=== PATIENT | female | born 1975 | race Caucasian/White ===

== ENCOUNTER 2018-04-08 08:53 | Outpatient (CLI) | payer OTHER ==
[2018-04-08 10:42] LABS: ALBUMIN 4.1 g/dL (3.2-5.5); ALBUMIN/GLOBULIN RATIO 1.3 (1.0-2.2); ALKALINE PHOSPHATASE 72 IU/L (42-121); ALT ALANINE AMINOTRANSFERASE 24 IU/L (10-60); AST ASPARTATE AMINOTRANSFERASE 19 IU/L (10-42); BILIRUBIN,TOTAL 0.6 mg/dL (0.2-1.0); BUN - BLOOD UREA NITROGEN 15 mg/dL (6-20); CARBON DIOXIDE - CO2 25 mmol/L (21-32); CHLORIDE 103 mmol/L (101-111); CHOL/HDL RATIO 5.4 (<4.4); CHOLESTEROL 280 mg/dL; CREATININE 0.6 mg/dL (0.4-1.0); GFR - MDRD 109 (>89); GLUCOSE 214 mg/dL (70-100); HDL CHOLESTEROL 52 mg/dL; LDL CHOLESTEROL,CALCULATED 188 mg/dL; LDL/HDL RATIO 3.6 (<4.4); SODIUM 140 mmol/L (135-145); TOTAL PROTEIN 7.2 g/dL (6.7-8.2); VLDL CHOLESTEROL 40 mg/dL
[2018-04-08 10:54] LABS: HB2 TOTAL 15.9 g/dL; HEMOGLOBIN A1C 1.3 g/dL; HEMOGLOBIN A1C % 9.6 % (4.6-6.2)
== END 2018-04-08 08:54 | disposition home or self-care (01) ==
LOC: LAB.F 08:53
PROVIDERS: ATTEND Internal Medicine
DX: E10.9 Type 1 diabetes mellitus without complications (principal); E78.5 Hyperlipidemia, unspecified
CPT/HCPCS: 36415; 80053; 80061; 82043; 83036; 83721; 84443

== ENCOUNTER 2018-06-08 09:17 | Outpatient (CLI) | payer OTHER ==
[2018-06-08 18:44] LABS: HB2 TOTAL 15.5 g/dL; HEMOGLOBIN A1C 1.06 g/dL; HEMOGLOBIN A1C % 8.4 % (4.6-6.2)
== END 2018-06-08 09:18 | disposition home or self-care (01) ==
LOC: LAB.F 09:17
PROVIDERS: ATTEND Internal Medicine
DX: E10.65 Type 1 diabetes mellitus with hyperglycemia (principal)
CPT/HCPCS: 36415; 83036

== ENCOUNTER 2018-09-02 07:27 | Outpatient (CLI) | payer OTHER ==
[2018-09-02 12:41] LABS: ALBUMIN 4.2 g/dL (3.2-5.5); ALBUMIN/GLOBULIN RATIO 1.3 (1.0-2.2); ALKALINE PHOSPHATASE 62 IU/L (42-121); ALT ALANINE AMINOTRANSFERASE 17 IU/L (10-60); AST ASPARTATE AMINOTRANSFERASE 19 IU/L (10-42); BILIRUBIN,TOTAL 0.5 mg/dL (0.2-1.0); BUN - BLOOD UREA NITROGEN 16 mg/dL (6-20); CALCIUM 9.2 mg/dL (8.5-10.3); CARBON DIOXIDE - CO2 24 mmol/L (21-32); CHLORIDE 107 mmol/L (101-111); CHOL/HDL RATIO 4.1 (<4.4); CHOLESTEROL 215 mg/dL; CREATININE 0.7 mg/dL (0.4-1.0); GFR - MDRD 91 (>89); GLUCOSE 81 mg/dL (70-100); HDL CHOLESTEROL 52 mg/dL; LDL CHOLESTEROL,CALCULATED 137 mg/dL; LDL/HDL RATIO 2.6 (<4.4); SODIUM 142 mmol/L (135-145); TOTAL PROTEIN 7.5 g/dL (6.7-8.2); VLDL CHOLESTEROL 26 mg/dL
[2018-09-02 17:38] LABS: CREATININE,URINE 136.3 mg/dL; MICROALBUM/CREATININE RATIO,UR 2.2 ug/mg (<30.0); MICROALBUMIN,URINE 0.3 mg/dL (0-300.0)
== END 2018-09-02 07:28 | disposition home or self-care (01) ==
LOC: LAB.F 07:27
PROVIDERS: ATTEND Internal Medicine
DX: E78.5 Hyperlipidemia, unspecified (principal); E10.65 Type 1 diabetes mellitus with hyperglycemia
CPT/HCPCS: 36415; 80053; 80061; 81599; 82043; 82570; 83036; 83721

== ENCOUNTER 2018-10-10 10:08 | Emergency (ER) | payer OTHER ==
[2018-10-10] MEDS ORDERED: SODIUM CHLORIDE 0.9% 1,000 ML IV ONE ×2 (10:16)
[2018-10-10 10:30] LABS: BILIRUBIN,URINE NEGATIVE (NEGATIVE); GLUCOSE, URINE (UA) >=1000 mg/dL (NEGATIVE); KETONES,URINE (UA) NEGATIVE (NEGATIVE); LEUKOCYTE ESTERASE, URINE NEGATIVE (NEGATIVE); NITRITE,URINE NEGATIVE (NEGATIVE); OCCULT BLOOD,URINE NEGATIVE (NEGATIVE); PROTEIN,URINE NEGATIVE (NEGATIVE); UROBILINOGEN,URINE 0.2 (NORMAL) E.U./dL (NORMAL)
[2018-10-10 10:31] LABS: CLARITY,URINE CLEAR (CLEAR); HCG UR QUAL NEGATIVE
[2018-10-10 10:52] LABS: BASOPHILS # (AUTO) 0.1 10^3/uL (0.0-0.1); BASOPHILS % (AUTO) 0.7 %; EOSINOPHILS # (AUTO) 0.2 10^3/uL (0.0-0.7); EOSINOPHILS % (AUTO) 2.7 %; HGB - HEMOGLOBIN 14.6 g/dL (12.0-16.0); LYMPHOCYTES # (AUTO) 1.9 10^3/uL (1.5-3.5); LYMPHOCYTES % (AUTO) 26.7 %; MEAN CORPUSCULAR HEMOGLOBIN 30.5 pg (27.0-31.0); MEAN CORPUSCULAR HGB CONC 33.9 g/dL (32.0-36.0); MEAN PLATELET VOLUME 10.1 fL (7.9-10.8); MONOCYTES # (AUTO) 0.5 10^3/uL (0.0-1.0); MONOCYTES % (AUTO) 6.6 %; NEUTROPHILS # (AUTO) 4.4 10^3/uL (1.5-6.6); PLT - PLATELET COUNT 213 10^3/uL (130-450); RED BLOOD COUNT 4.79 10^6/uL (4.20-5.40); RED CELL DISTRIBUTION WIDTH 13.7 % (12.0-15.0)
[2018-10-10 11:03] LABS: VBG BASE EXCESS -1.4 mmol/L (-2 - +2); VBG PCO2 37.7 mmHg (41-51); VBG PH 7.402 (7.31-7.41); VBG PO2 42.8 mmHg (25-47); VBG TOTAL CO2 24.1 mmol/L (24-29)
[2018-10-10 11:05] LABS: BUN - BLOOD UREA NITROGEN 14 mg/dL (6-20); CARBON DIOXIDE - CO2 22 mmol/L (21-32); CHLORIDE 106 mmol/L (101-111); SODIUM 140 mmol/L (135-145)
--- NOTE | 2018-10-10 11:05 | ED Physician Documentation ---
History of Present Illness - Stated complaint Stated Complaint: DIZZINESS/WEAKNESS - Chief complaint Chief Complaint: Abd Pain - History obtained from History obtained from: Patient, Family - History of Present Illness Timing: How many days ago (2-3) Pain level max: 4 Pain level now: 4 - Additonal information Additional information: 42-year-old diabetic female presents to the emergency department stating that her blood sugars have been poorly controlled for the past few days. She states she has had diarrhea for the past 3 weeks. Intermittent crampy abdominal pain. No recent antibiotics. No recent travel. She denies any changes to her medications. Nothing makes it better or worse. She states sometimes her blood sugar is high and sometimes it is low. Review of Systems Ten Systems: 10 systems reviewed and negative Constitutional: denies: Fever, Chills Nose: denies: Rhinorrhea / runny nose, Congestion Cardiac: denies: Chest pain / pressure Respiratory: denies: Cough GI: reports: Nausea. 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 HEENT: Rhinoplasty - Present Medications Home Medications: Ambulatory Orders Medication Instructions Recorded Confirmed Atorvastatin [Lipitor] 20 mg ORAL QPM 10/10/18 10/10/18 Empagliflozin [Jardiance] 25 mg PO DAILY 10/10/18 10/10/18 Insulin Aspart [NovoLOG] 5 unit SUBQ TIDWM 10/10/18 10/10/18 Insulin Glargine [Lantus Solostar] 20 unit SUBQ QPM 10/10/18 10/10/18 Insulin Glargine [Lantus Solostar] 20 unit SUBQ QPM #1 pen 10/10/18 Ondansetron Odt [Zofran] 4 mg TL Q6H PRN #10 tablet 10/10/18 metFORMIN [Glucophage] 500 mg PO BIDWM 10/10/18 10/10/18 - Allergies Allergies/Adverse Reactions: Allergies Allergy/AdvReac Type Severity Reaction Status Date / Time ciprofloxacin [From Cipro] Allergy Anaphylaxis Verified 10/10/18 10:16 shellfish derived Allergy Anaphylaxis Verified 10/10/18 10:16 - Social History Does the pt smoke?: No Smoking Status: Never smoker PD ED PE NORMAL - Vitals Vital signs reviewed: Yes - General General: Alert and oriented X 3, No acute distress, Well developed/nourished - HEENT HEENT: PERRL, Moist mucous membranes - Cardiac Cardiac: RRR, Strong equal pulses - Respiratory Respiratory: No respiratory distress, Clear bilaterally - Abdomen Abdomen: Soft, Non tender, Non distended - Back Back: No CVA TTP, No spinal TTP - Derm Derm: Warm and dry, No rash - Extremities Extremities: No calf tenderness / cord - Neuro Neuro: Alert and oriented X 3 - Psych Psych: Normal mood, Normal affect Results - Vitals Vitals: Vital Signs - 24 hr 10/10/18 10/10/18 10/10/18 10:11 12:22 13:32 Temperature 36.0 C L 36.6 C Heart Rate 60 56 L 64 Respiratory 18 16 18 Rate Blood Pressure 125/82 H 116/78 117/78 O2 Saturation 100 99 98 Oxygen O2 Source Room air - Labs Labs: Laboratory Tests 10/10/18 10/10/18 10/10/18 10:27 10:48 10:48 WBC 7.0 RBC 4.79 Hgb 14.6 Hct 43.1 MCV 90.0 MCH 30.5 MCHC 33.9 RDW 13.7 Plt Count 213 MPV 10.1 Neut # (Auto) 4.4 Lymph # (Auto) 1.9 [place] # (Auto) 0.5 Eos # (Auto) 0.2 Baso # (Auto) 0.1 Absolute Nucleated RBC 0.00 Nucleated RBC % 0.0 VBG pH VBG pCO2 VBG pO2 VBG HCO3 VBG Total CO2 VBG O2 Saturation VBG Base Excess Sodium 140 Potassium 3.7 Chloride 106 Carbon Dioxide 22 Anion Gap 12.0 BUN 14 Creatinine 0.7 Estimated GFR (MDRD) 91 Glucose 194 H Calcium 9.2 Total Bilirubin 0.5 AST 17 ALT 17 Alkaline Phosphatase 59 Total Protein 7.3 Albumin 4.2 Globulin 3.1 Albumin/Globulin Ratio 1.4 Lipase 28 Urine Color YELLOW Urine Clarity CLEAR Urine pH 6.0 Ur Specific [place] 1.010 Urine Protein NEGATIVE Urine Glucose (UA) >=1000 H Urine Ketones NEGATIVE Urine Occult Blood NEGATIVE Urine Nitrite NEGATIVE Urine Bilirubin NEGATIVE Urine Urobilinogen 0.2 (NORMAL) Ur Leukocyte Esterase NEGATIVE Ur Microscopic Review NOT INDICATED Urine Culture Comments NOT INDICATED Urine HCG, Qual NEGATIVE Serum Ketones NEGATIVE 10/10/18 10:48 WBC RBC Hgb Hct MCV MCH MCHC RDW Plt Count MPV Neut # (Auto) Lymph # (Auto) [place] # (Auto) Eos # (Auto) Baso # (Auto) Absolute Nucleated RBC Nucleated RBC % VBG pH 7.402 VBG pCO2 37.7 L VBG pO2 42.8 VBG HCO3 22.9 L VBG Total CO2 24.1 VBG O2 Saturation 80.2 H VBG Base Excess -1.4 Sodium Potassium Chloride Carbon Dioxide Anion Gap BUN Creatinine Estimated GFR (MDRD) Glucose Calcium Total Bilirubin AST ALT Alkaline Phosphatase Total Protein Albumin Globulin Albumin/Globulin Ratio Lipase Urine Color Urine Clarity Urine pH Ur Specific [place] Urine Protein Urine Glucose (UA) Urine Ketones Urine Occult Blood Urine Nitrite Urine Bilirubin Urine Urobilinogen Ur Leukocyte Esterase Ur Microscopic Review Urine Culture Comments Urine HCG, Qual Serum Ketones - Rads (name of study) CT abd/pelvis Radiology: Prelim report reviewed, EMP read contemporaneously, See rad report (No acute abnormality. Status post cholecystectomy and hysterectomy. Diverticulosis of the descending and sigmoid colon, no sign of diverticulitis. 4.5 cm fat-containing umbilical hernia. ) PD MEDICAL DECISION MAKING - ED course Complexity details: reviewed results, re-evaluated patient, considered differential, d/w patient ED course: No acute findings on CT scan. Her Lantus was by 3 years. We will refill this for her. Feels better after IV fluids. We will also prescribe Zofran for her. We will follow-up with her doctor for further care. No evidence of DKA or HHONKS. Patient counseled regarding signs and symptoms for which I believe and urgent re-evaluation would be necessary. Patient with good understanding of and agreement to plan and is comfortable going home at this time This document was made in part using voice recognition software. While efforts are made to proofread this document, sound alike and grammatical errors may occur. Departure - Departure Disposition: 01 Home, Self Care Clinical Impression: Viral syndrome, Dehydration Condition: Good Instructions: ED Dehydration, ED Viral Syndrome Follow-Up: Salomón Stewart MD [Primary Care Provider] - Within 3 Days Prescriptions: Insulin Glargine [Lantus Solostar] 20 unit SUBQ QPM #1 pen Ondansetron Odt [Zofran] 4 mg TL Q6H PRN #10 tablet PRN Reason: Nausea / Vomiting Comments: Return if you worsen. Follow-up with your doctor for further care. Drink plenty of water. Discharge Date/Time: 10/10/18 13:32
[2018-10-10 11:06] LABS: ALBUMIN 4.2 g/dL (3.2-5.5); ALBUMIN/GLOBULIN RATIO 1.4 (1.0-2.2); ALKALINE PHOSPHATASE 59 IU/L (42-121); ALT ALANINE AMINOTRANSFERASE 17 IU/L (10-60); AST ASPARTATE AMINOTRANSFERASE 17 IU/L (10-42); BILIRUBIN,TOTAL 0.5 mg/dL (0.2-1.0); CALCIUM 9.2 mg/dL (8.5-10.3); CREATININE 0.7 mg/dL (0.4-1.0); GFR - MDRD 91 (>89); GLUCOSE 194 mg/dL (70-100); KETONES, SERUM (ACETEST) NEGATIVE (NEGATIVE); LIPASE 28 U/L (22-51); TOTAL PROTEIN 7.3 g/dL (6.7-8.2)
[2018-10-10] MEDS ORDERED: ONDANSETRON 4 MG/2 ML VIAL IVP STA (11:06)
[2018-10-10] MEDS ORDERED: IOVERSOL 320 100 ML VIAL IVP ONE ×2 (11:11→12:00)
--- NOTE | 2018-10-10 12:28 | CT Report ---
Reason: abdominal pain, diarrhea Procedure Date: 10/10/2018 Accession Number: [id number] / [id number] Procedure: CT - Abdomen/Pelvis W CPT Code: FULL RESULT: EXAM: CT ABDOMEN AND PELVIS WITH IV CONTRAST EXAM DATE: 10/10/2018. CLINICAL HISTORY: Abdominal pain. Diarrhea. COMPARISONS: None. TECHNIQUE: Routine helical CT imaging was performed through the abdomen and pelvis. IV contrast: 90 cc of Optiray 320. Enteric contrast: None. Reconstructions: Coronal and sagittal. In accordance with CT protocol optimization, one or more of the following dose reduction techniques were utilized for this exam: automated exposure control, adjustment of mA and/or KV based on patient size, or use of iterative reconstructive technique. FINDINGS: Lung Bases: The lungs are clear. No pleural or pericardial effusion. Liver: Normal. No masses. Gallbladder/Bile Ducts: Cholecystectomy. No bile duct dilatation. Spleen: Normal. Pancreas: Normal. Adrenal Glands: 10 mm left adrenal nodule, 80 HU postcontrast. Right adrenal appears normal. Kidneys: Normal. No masses, calculi, or hydronephrosis. Peritoneal Cavity/Bowel: No bowel dilatation. Diverticulosis of the descending and sigmoid colon. No free fluid, free air or adenopathy. No masses or acute inflammatory process. 4.5 cm fat-containing umbilical hernia. Pelvic Organs: The urinary bladder appears normal. The uterus has been removed. No mass, adenopathy, or fluid collection. Surgical clips in the left pelvis. Vasculature: Normal. Bones: Normal. IMPRESSION: No acute abnormality. Status post cholecystectomy and hysterectomy. Diverticulosis of the descending and sigmoid colon, no sign of diverticulitis. 4.5 cm fat-containing umbilical hernia. RADIA
[2018-10-10 13:32] VITALS: BP 117/78
== END 2018-10-10 13:32 | disposition home or self-care (01) ==
LOC: ED 10:08
DX: B34.9 Viral infection, unspecified (principal); E86.0 Dehydration; E11.9 Type 2 diabetes mellitus without complications; Z79.4 Long term (current) use of insulin
CPT/HCPCS: 36415; 74177; 80053; 81003; 81025; 82009; 82803; 83690; 85025; 96361; 96374; 99284; Q9967; 81001; 87086

== ENCOUNTER 2019-01-19 08:44 | Outpatient (CLI) | payer OTHER ==
[2019-01-19 18:26] LABS: ALBUMIN 4.3 g/dL (3.2-5.5); ALBUMIN/GLOBULIN RATIO 1.3 (1.0-2.2); ALKALINE PHOSPHATASE 81 IU/L (42-121); ALT ALANINE AMINOTRANSFERASE 21 IU/L (10-60); AST ASPARTATE AMINOTRANSFERASE 18 IU/L (10-42); BILIRUBIN,TOTAL 0.9 mg/dL (0.2-1.0); BUN - BLOOD UREA NITROGEN 12 mg/dL (6-20); CHOLESTEROL 167 mg/dL; CREATININE 0.6 mg/dL (0.4-1.0); GFR - MDRD 108 (>89); HDL CHOLESTEROL 42 mg/dL; LDL CHOLESTEROL,CALCULATED 95 mg/dL; LDL/HDL RATIO 2.3 (<4.4); TOTAL PROTEIN 7.6 g/dL (6.7-8.2); VLDL CHOLESTEROL 30 mg/dL
[2019-01-19 18:34] LABS: CALCIUM 9.5 mg/dL (8.5-10.3); CARBON DIOXIDE - CO2 29 mmol/L (21-32); CHLORIDE 102 mmol/L (101-111); GLUCOSE 312 mg/dL (70-100); SODIUM 139 mmol/L (135-145)
[2019-01-19 19:05] LABS: HB2 TOTAL 16.4 g/dL; HEMOGLOBIN A1C 1.41 g/dL
== END 2019-01-19 08:45 | disposition home or self-care (01) ==
LOC: LAB.S 08:44
PROVIDERS: ATTEND Internal Medicine
DX: E78.5 Hyperlipidemia, unspecified (principal); E11.9 Type 2 diabetes mellitus without complications; Z79.4 Long term (current) use of insulin
CPT/HCPCS: 36415; 80053; 80061; 83036; 83721

== ENCOUNTER 2019-01-31 09:58 | Outpatient (CLI) | payer OTHER ==
[2019-01-31 20:30] LABS: CANDIDA GROUP DNA NEGATIVE (NEGATIVE); CANDIDA KRUSEI DNA NEGATIVE (NEGATIVE); TRICHOMONAS VAGINALIS DNA NEGATIVE (NEGATIVE)
== END 2019-01-31 23:59 | disposition home or self-care (01) ==
LOC: LAB.R 09:58
PROVIDERS: ATTEND Obstetrics & Gynecology
DX: L29.8 Other pruritus (principal)
CPT/HCPCS: 87661; 87801

== ENCOUNTER 2019-03-31 08:51 | Outpatient (CLI) | payer OTHER ==
--- NOTE | 2019-04-19 08:50 | Mammography Report ---
Reason: ROUTINE MAMMO Procedure Date: 03/31/2019 Accession Number: [id number] / [id number] Procedure: MGS - Screening Mammo Dig Bilat CPT Code: Final Report FULL RESULT: EXAM: Screening Mammo Dig Bilat DATE: 03/31/2019 9:24 AM CLINICAL HISTORY: Screening encounter. History of early menses. TECHNIQUE: (B) - Bilateral CC, laterally exaggerated CC, MLO views were obtained. COMPARISON: 08/09/2014. PARENCHYMAL PATTERN: (A) - The breast(s) demonstrate(s) scattered fibroglandular densities. FINDINGS: There are no suspicious masses, calcifications, or areas of distortion. IMPRESSION: Negative examination. BI-RADS category 1. RECOMMENDATION: (ANNUAL) - Recommend routine annual screening mammography. BI-RADS CATEGORY: (1) - Negative. STANDARD QUALIFYING STATEMENTS: 1. This examination was reviewed with the aid of Computer-Aided Detection (CAD). 2. A negative or benign imaging report should not preclude biopsy if clinically suspicious findings are present. 3. Dense breasts may obscure an underlying neoplasm. 4. This examination was reviewed without the aid of 3D breast imaging (tomosynthesis).
== END 2019-03-31 08:52 | disposition home or self-care (01) ==
LOC: DI.S 08:51
PROVIDERS: ATTEND Obstetrics & Gynecology
DX: Z12.31 Encounter for screening mammogram for malignant neoplasm of breast (principal)
CPT/HCPCS: 77067

== ENCOUNTER 2019-05-31 10:24 | Observation (INO) | payer OTHER ==
[2019-05-31 11:06] LABS: BILIRUBIN,URINE NEGATIVE (NEGATIVE); GLUCOSE, URINE (UA) >=1000 mg/dL (NEGATIVE); KETONES,URINE (UA) NEGATIVE (NEGATIVE); LEUKOCYTE ESTERASE, URINE NEGATIVE (NEGATIVE); NITRITE,URINE NEGATIVE (NEGATIVE); OCCULT BLOOD,URINE NEGATIVE (NEGATIVE); PH,URINE 6.5 PH (5.0-7.5); PROTEIN,URINE NEGATIVE (NEGATIVE); UROBILINOGEN,URINE 0.2 (NORMAL) E.U./dL (NORMAL)
[2019-05-31 11:07] LABS: BASOPHILS # (AUTO) 0.1 10^3/uL (0.0-0.1); BASOPHILS % (AUTO) 0.9 %; EOSINOPHILS # (AUTO) 0.2 10^3/uL (0.0-0.7); EOSINOPHILS % (AUTO) 2.5 %; HGB - HEMOGLOBIN 15.1 g/dL (12.0-16.0); LYMPHOCYTES # (AUTO) 1.9 10^3/uL (1.5-3.5); LYMPHOCYTES % (AUTO) 27.5 %; MEAN CORPUSCULAR HEMOGLOBIN 30.3 pg (27.0-31.0); MEAN CORPUSCULAR HGB CONC 33.6 g/dL (32.0-36.0); MEAN CORPUSCULAR VOLUME 90.4 fL (81.0-99.0); MEAN PLATELET VOLUME 9.7 fL (7.9-10.8); MONOCYTES # (AUTO) 0.4 10^3/uL (0.0-1.0); MONOCYTES % (AUTO) 5.6 %; NEUTROPHILS # (AUTO) 4.3 10^3/uL (1.5-6.6); NEUTROPHILS % (AUTO) 63.1 %; PLT - PLATELET COUNT 264 10^3/uL (130-450); RED BLOOD COUNT 4.98 10^6/uL (4.20-5.40); RED CELL DISTRIBUTION WIDTH 13.5 % (12.0-15.0); WHITE BLOOD COUNT 6.8 x10^3/uL (4.8-10.8)
[2019-05-31 11:09] LABS: CLARITY,URINE CLEAR (CLEAR)
[2019-05-31 11:19] LABS: ALBUMIN 4.5 g/dL (3.2-5.5); ALBUMIN/GLOBULIN RATIO 1.6 (1.0-2.2); BILIRUBIN,TOTAL 0.4 mg/dL (0.2-1.0); CREATININE 0.6 mg/dL (0.4-1.0); TOTAL PROTEIN 7.3 g/dL (6.7-8.2)
--- NOTE | 2019-05-31 13:08 | ED Physician Documentation ---
PD HPI ABD PAIN - Stated complaint Stated Complaint: ABD PAIN - Chief complaint Chief Complaint: Abd Pain - History obtained from History obtained from: Patient - History of Present Illness Timing - onset: How many hours ago (7), Today (at 3 am) Timing - duration: Hours Timing - details: Abrupt onset, Still present Quality: Cramping, Sharp, Pain Location: LLQ Radiation: Left flank Improved by: No: Eating, Laying still, Position Worsened by: Moving, Palpation. No: Eating, Breathing Associated symptoms: Nausea. No: Fever, Vomiting, Diarrhea, Constipation, Dysuria, Near syncope / syncope Similar symptoms before: Has not had sx before Recently seen: Clinic (Seen by her primary care in the clinic and referred to the ER due to the degree of pain and concern for an acute process and timely need for work-up.) Review of Systems Constitutional: denies: Fever, Chills Nose: denies: Rhinorrhea / runny nose, Congestion Throat: denies: Sore throat Cardiac: denies: Chest pain / pressure Respiratory: denies: Dyspnea, Cough GI: reports: Abdominal Pain, Nausea. 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: Hysterectomy, Oophrectomy HEENT: Rhinoplasty - Present Medications Home Medications: Ambulatory Orders Medication Instructions Recorded Confirmed Atorvastatin [Lipitor] 20 mg ORAL QPM 10/10/18 10/10/18 Empagliflozin [Jardiance] 25 mg PO DAILY 10/10/18 10/10/18 Insulin Aspart [NovoLOG] 5 unit SUBQ TIDWM 10/10/18 10/10/18 Insulin Glargine [Lantus Solostar] 20 unit SUBQ QPM 10/10/18 10/10/18 Insulin Glargine [Lantus Solostar] 20 unit SUBQ QPM #1 pen 10/10/18 Ondansetron Odt [Zofran] 4 mg TL Q6H PRN #10 tablet 10/10/18 metFORMIN [Glucophage] 500 mg PO BIDWM 10/10/18 10/10/18 - Allergies Allergies/Adverse Reactions: Allergies Allergy/AdvReac Type Severity Reaction Status Date / Time ciprofloxacin [From Cipro] Allergy Anaphylaxis Verified 05/31/19 10:37 shellfish derived Allergy Anaphylaxis Verified 05/31/19 10:37 - Social History Does the pt smoke?: No Smoking Status: Never smoker PD ED PE NORMAL - Vitals Vital signs reviewed: Yes - General General: Alert and oriented X 3, Well developed/nourished, Other (She appears in considerable pain and is holding still to reduce movement.) - HEENT HEENT: Pharynx benign - Neck Neck: Supple, no meningeal sign, No adenopathy - Cardiac Cardiac: RRR, No murmur - Respiratory Respiratory: Clear bilaterally - Abdomen Abdomen: Non distended, No organomegaly, Other (The abdomen shows a little bit of fullness in the supraumbilical area without any tenderness in that spot. There is softness in the subcutaneous soft tissue. There is no umbilical area hernia per se. There is considerable tenderness in the left lower quadrant area with percussion and rebound tenderness. There is some mild left CVA tenderness. The right abdomen is not tender.). No: Normal bowel sounds (diminished) - Female Female : Deferred - Rectal Rectal: Deferred - Derm Derm: Normal color, Warm and dry, No rash - Extremities Extremities: No edema, No calf tenderness / cord - Neuro Neuro: Alert and oriented X 3, No motor deficit, Normal speech Results - Vitals Vitals: Vital Signs - 24 hr 05/31/19 05/31/19 05/31/19 10:37 13:12 15:41 Temperature 36.7 C 36.6 C 36.6 C Heart Rate 70 63 66 Respiratory 20 16 16 Rate Blood Pressure 110/76 103/72 98/65 O2 Saturation 98 100 100 Oxygen O2 Source Room air - Labs Labs: Laboratory Tests 05/31/19 05/31/19 05/31/19 11:00 11:04 11:04 WBC 6.8 RBC 4.98 Hgb 15.1 Hct 45.0 MCV 90.4 MCH 30.3 MCHC 33.6 RDW 13.5 Plt Count 264 MPV 9.7 Neut # (Auto) 4.3 Lymph # (Auto) 1.9 [place] # (Auto) 0.4 Eos # (Auto) 0.2 Baso # (Auto) 0.1 Absolute Nucleated RBC 0.00 Nucleated RBC % 0.0 Sodium 140 Potassium 3.8 Chloride 103 Carbon Dioxide 26 Anion Gap 11.0 BUN 12 Creatinine 0.6 Estimated GFR (MDRD) 108 Glucose 255 H Glycated Hemoglobin Estim Average Glucose Calcium 9.0 Total Bilirubin 0.4 AST 19 ALT 26 Alkaline Phosphatase 64 Total Protein 7.3 Albumin 4.5 Globulin 2.8 Albumin/Globulin Ratio 1.6 Lipase 28 Urine Color YELLOW Urine Clarity CLEAR Urine pH 6.5 Ur Specific [place] 1.010 Urine Protein NEGATIVE Urine Glucose (UA) >=1000 H Urine Ketones NEGATIVE Urine Occult Blood NEGATIVE Urine Nitrite NEGATIVE Urine Bilirubin NEGATIVE Urine Urobilinogen 0.2 (NORMAL) Ur Leukocyte Esterase NEGATIVE Ur Microscopic Review NOT INDICATED Urine Culture Comments NOT INDICATED Serum Ketones 05/31/19 05/31/19 11:04 11:04 WBC RBC Hgb Hct MCV MCH MCHC RDW Plt Count MPV Neut # (Auto) Lymph # (Auto) [place] # (Auto) Eos # (Auto) Baso # (Auto) Absolute Nucleated RBC Nucleated RBC % Sodium Potassium Chloride Carbon Dioxide Anion Gap BUN Creatinine Estimated GFR (MDRD) Glucose Glycated Hemoglobin 10.2 H Estim Average Glucose 246 H Calcium Total Bilirubin AST ALT Alkaline Phosphatase Total Protein Albumin Globulin Albumin/Globulin Ratio Lipase Urine Color Urine Clarity Urine pH Ur Specific [place] Urine Protein Urine Glucose (UA) Urine Ketones Urine Occult Blood Urine Nitrite Urine Bilirubin Urine Urobilinogen Ur Leukocyte Esterase Ur Microscopic Review Urine Culture Comments Serum Ketones NEGATIVE - Rads (name of study) Abdominal pelvic CT Radiology: Prelim report reviewed (Diverticuli without diverticulitis. 4 cm fat-containing hernia in the supraumbilical area without any inflammation or signs of obstruction no kidney stones nor hydronephrosis. No acute explanation for the pain), See rad report PD MEDICAL DECISION MAKING - ED course Complexity details: re-evaluated patient (Her CT scan did not show any obvious cause for the pain. There is a supra umbilical hernia of fat without any inflammation. Palpation in that area is not tender. That does not seem to be the cause of the pain clinically. She is still very tender in the left lower abdomen still with some rebound and percussion. I do not have a obvious explanation for it but her continued pain is still concerning. I will talk with the hospitalist regarding further assessment.), considered differential (Clinically seems concerning for diverticulitis. Also consider kidney infection or kidney stone. She has had previous hysterectomy and oophorectomy as well as appendectomy and cholecystectomy so I know those are not the problem. She is in quite a bit of pain and has tenderness with peritoneal signs of percussion and rebound. We will get labs and CT scan to better evaluate.), d/w patient Departure - Departure Disposition: ED Place in Observation Clinical Impression: Left lower quadrant abdominal pain Condition: Stable Record reviewed to determine appropriate education?: Yes Discharge Date/Time: 05/31/19 17:05
[2019-05-31] MEDS ORDERED: KETOROLAC 30 MG/ML VIAL IVP STA (13:51)
[2019-05-31] MEDS ORDERED: HYDROmorphone 1 MG/ML SYRINGE IVP STA ×2 (13:51→15:36)
[2019-05-31] MEDS ORDERED: ONDANSETRON 4 MG/2 ML VIAL IVP STA ×2 (13:51→15:48)
[2019-05-31] MEDS ORDERED: SODIUM CHLORIDE 0.9% 1,000 ML IV ONE ×2 (13:51→15:44)
[2019-05-31] MEDS ORDERED: IOVERSOL 320 100 ML VIAL IVP ONE ×2 (13:55→20:27)
--- NOTE | 2019-05-31 14:49 | CT Report ---
Reason: left lower abd pain today Procedure Date: 05/31/2019 Accession Number: [id number] / [id number] Procedure: CT - Abdomen/Pelvis W CPT Code: Final Report FULL RESULT: EXAM: CT ABDOMEN AND PELVIS EXAM DATE: 05/31/2019 02:26 PM. CLINICAL HISTORY: Left lower abd pain today. COMPARISONS: ABDOMEN/PELVIS W/ 10/10/2018 11:49 AM. TECHNIQUE: Routine helical CT imaging was performed through the abdomen and pelvis. IV contrast: OPTIRAY 320. Enteric contrast: No. Reconstructions: Coronal and sagittal. In accordance with CT protocol optimization, one or more of the following dose reduction techniques were utilized for this exam: automated exposure control, adjustment of mA and/or KV based on patient size, or use of iterative reconstructive technique. FINDINGS: Lung Bases: Unremarkable. Liver: Fatty infiltrated. Gallbladder/Bile Ducts: Post cholecystectomy Spleen: Normal. Pancreas: Normal. Adrenal Glands: Stable left adrenal nodule Kidneys: Normal. No masses or hydronephrosis. Peritoneal Cavity/Bowel: diverticulosis. 4.7 cm fat-containing supraumbilical hernia, neck measures 2.8 cm. No free fluid, free air or adenopathy. No masses or acute inflammatory process. The appendix is not identified but no pericecal inflammatory changes. Pelvic Organs: Post hysterectomy The bladder and visualized pelvic organs are within normal limits. Vasculature: No aneurysms or other significant abnormality. Bones: No significant abnormality. Other: None. IMPRESSION: 1. Diverticulosis. 2. 4.7 cm fat-containing supra umbilical hernia. 3. Appendix not identified but no pericecal inflammatory changes. RADIA
[2019-05-31] MEDS ORDERED: PROCHLORPERAZINE 10 MG/2 ML VIAL IVP PRN (15:53)
[2019-05-31] MEDS ORDERED: ONDANSETRON 4 MG/2 ML VIAL IVP PRN (15:53)
[2019-05-31] MEDS ORDERED: SODIUM CHLORIDE FLUSH 0.9% 10 ML SYRINGE IVP PRN (15:53)
[2019-05-31] MEDS ORDERED: MORPHINE 2 MG/ML CARPUJECT IVP PRN (15:53)
[2019-05-31] MEDS ORDERED: ZOLPIDEM 5 MG TABLET PO PRN ×2 (15:53→17:29)
[2019-05-31] MEDS ORDERED: oxyCODONE 5 MG TABLET PO PRN (15:53)
[2019-05-31 16:39] LABS: HB2 TOTAL 15.4 g/dL; HEMOGLOBIN A1C 1.36 g/dL; HEMOGLOBIN A1C % 10.2 % (4.6-6.2)
[2019-05-31] MEDS ORDERED: LORazepam 2 MG/ML VIAL IVP PRN (17:29)
[2019-05-31] MEDS: INSULIN ASPART 300 UNIT/3 ML PEN SUBQ SCH ×2 (17:37→23:07)
--- NOTE | 2019-05-31 17:38 | HISTORY & PHYSICAL EXAMINATION ---
Chief Complaint - Chief Complaint Chief Complaint: abdominal pain History of Present Illness - History of Present Illness HPI Comment/Other: Ms. Owens is a 43 yrs-old female with a PMH significant for DM2 on insulin for 10 yrs, hyperlipidemia, endometriosis with s/p of hysterectomy, cholecystectomy, appendectomy, who present ER complain abdominal pain. pt report she had lower abdominal pain started about 3am. pt is described as constant radiating around left side to the left back. pt report she had nausea with vomiting. she denies fevers, chill, shortness of breath, cough, chest pain, diarrhea. she also reports that she feels like she can't empty bladder. pt report she saw PCP today morning and advised her to come to ER for a more detailed evaluation. CT of abdomen reveals diverticulosis, 4.7 cm fat-containing supra umbilical hernia otherwise unremarkable. Lab test reveals A1C 10.2 and hyperglycemia at 255, serum ketones is negative. In ER, pt is afebrile, and hemodynamic stable. pt is admitted in observation unit for evaluation of intractable abdominal pain,and nausea and vomiting. pt request full code status History - Past Medical History Cardiovascular: reports: High cholesterol Endocrine/Autoimmune: reports: Type 2 diabetes PUBLIC FINANCE SPECIALIST: reports: Endometriosis - Past Surgical History General: reports: Cholecystectomy /PUBLIC FINANCE SPECIALIST: reports: Hysterectomy HEENT: reports: Rhinoplasty - Family & Social History Family History: Mother: Alive and Well, Mental Illness, Father: Alive and Well, CAD Family History Comment/Other: pt report both her parents are living. her father had hx of HTN, her mother has serious mental health issue. her siblings are all healthy. she has three children, all are health. Social History Notes: she denies hx of smoking, alcohol and drug issues. Meds/Allgy - Home Medications Home Medications: Ambulatory Orders Medication Instructions Recorded Confirmed Atorvastatin [Lipitor] 20 mg ORAL QPM 10/10/18 10/10/18 Empagliflozin [Jardiance] 25 mg PO DAILY 10/10/18 10/10/18 Insulin Aspart [NovoLOG] 5 unit SUBQ TIDWM 10/10/18 10/10/18 Insulin Glargine [Lantus Solostar] 20 unit SUBQ QPM 10/10/18 10/10/18 Insulin Glargine [Lantus Solostar] 20 unit SUBQ QPM #1 pen 10/10/18 Ondansetron Odt [Zofran] 4 mg TL Q6H PRN #10 tablet 10/10/18 metFORMIN [Glucophage] 500 mg PO BIDWM 10/10/18 10/10/18 - Allergies Allergies/Adverse Reactions: Allergies Allergy/AdvReac Type Severity Reaction Status Date / Time ciprofloxacin [From Cipro] Allergy Anaphylaxis Verified 05/31/19 10:37 shellfish derived Allergy Anaphylaxis Verified 05/31/19 10:37 Review of Systems - Constitutional Constitutional: denies: Fatigue, Fever, Chills, Malaise, Weakness, Poor appetite, Diaphoresis, Night sweats - Eyes Eyes: denies: Pain, Irritation, Amaurosis, Blurred vision, Spots in vision, Field loss, Vision loss, Dipolpia - Ears, Nose & Throat Ears, Nose & Throat: denies: Ear pain, Hearing loss, Hearing aids, Tinnitus, Vertigo, Nasal pain, Nasal discharge, Nosebleeds, Nasal obstruction, Postnasal drainage, Dentures, Sore throat, Mouth lesions, Bleeding gums - Cardiovascular Cariovascular: denies: Irregular heart rate, Palpitations, Chest pain, Edema, Lightheadedness, Syncope, Exertional dyspnea, Decr. exercise tolerance - Respiratory Respiratory: denies: Cough, Sputum production, Wheezing, Snoring, Hemoptysis, Orthopnea, SOB at rest, SOB with exertion, Apnea - Gastrointestinal Gastrointestinal: reports: Abdominal pain, Nausea, Vomiting. denies: Abdominal distention, Constipation, Diarrhea, Change in bowel habits, Rectal bleeding, Black stools, Bloody stools, Bile emesis, Davon blood emesis, Coffee grounds emesis, Reflux/heartburn - Genitourinary Genitourinary: denies: Dysuria, Frequency, Urgency, Incontinence, Flank pain, Nocturia, Urethral discharge - Musculoskeletal Musculoskeletal: denies: Muscle pain, Back pain, Muscle aches, Stiffness, L imited range of motion, Muscle weakness, Gout, Joint pain - Integumentary Integumentary: denies: Rash, Pruritis, Lesions, Dryness, Lumps, Acne, Pigment changes, Nail changes - Neurological Neurological: denies: General weakness, Focal weakness, Headache, Dizziness, Numbness, Memory problems, Pre-existing deficit, Abnormal gait - Psychiatric Psychiatric: denies: Depression, Anxiety, Suicidal, Delusions, Hallucinations, Homicidal - Endocrine Endocrine: denies: Polyuria, Polydypsia, Polyphagia, Intolerance to cold - Hematologic/Lymphatic Hematologic/Lymphatic: denies: Anemia, Bruising, Petechiae, Blood clots, Lymphadenopathy, Bleeding tendencies Exam - Vital Signs Vital Signs: Vital Signs x48h Temp Pulse Pulse Resp BP BP Pulse Ox 05/31/19 17:00 36.2 C L 66 18 121/79 98 05/31/19 15:41 36.6 C 66 16 98/65 100 05/31/19 13:12 36.6 C 63 16 103/72 100 05/31/19 10:37 36.7 C 70 20 110/76 98 - Physical Exam General Appearance: positive: Alert, Mild distress. negative: Lethargic Eyes Bilateral: positive: Normal inspection, PERRL, EOMI, No lid inflammation ENT: positive: ENT inspection nml, Pharynx nml, No signs of dehydration. negative: Purulent nasal drainage Neck: positive: Nml inspection, Thyroid nml, No JVD, Trachea midline. negative: Thyromegaly, Lymphadenopathy (R), Lymphadenopathy (L), Stiff neck, Tracheal deviation Respiratory: positive: Chest non-tender, No respiratory distress, Breath sounds nml. negative: Wheezes, Rales, Rhonchi Cardiovascular: positive: Regular rate & rhythm, No murmur, No gallop. negative: Irregularly irregular, Extrasystoles, Tachycardia, Bradycardia, JVD present, Systolic murmur, Diastolic murmur Peripheral Pulses: positive: 2+ Abdomen: positive: Non-tender, No organomegaly, Nml bowel sounds, No distention. negative: Tenderness, Guarding Back: positive: Nml inspection. negative: CVA tenderness (R), CVA tenderness (L) Skin: positive: Color nml, No rash, Warm, Dry. negative: Cyanosis, Diaphoresis, Pallor Extremities: positive: Non-tender, Full ROM, Nml appearance. negative: Calf tenderness, Kimberly's sign/cords Neurologic/Psychiatric: positive: Oriented x3, Motor nml, Sensation nml, Mood/a ffect nml. negative: Weakness, Sensory loss, Facial droop, Slurred/abnml speech, Depressed mood/affect Sepsis Event Note (H) - Evaluation Current Stage of Sepsis: Ruled out Conclusion/Plan - Problem List (1) Left lower quadrant abdominal pain Conclusion/Plan: CT of abdomen/pelvis reveals unremarkable. pt has hx of multiple abdominal surgery, unknown etiology to cause her abdominal pain. differential diagnosis including virus gastroenteritis, diabetes gastroparesis, muscle spasm. plan: bowel rest with clear diet, IVF of NS, pain control, anti-emesis PRN, ambien for pt's sleep and rest. (2) Nausea & vomiting Conclusion/Plan: unknown etiology, differential diagnosis including virus gastroenteritis, diabetes gastroparesis plan: IVF of NS, anti-emesis PRN, bowel rest (3) Dehydration Conclusion/Plan: pt clinically present dehydration and pt has hyperglycemia. plan: IVF of NS, lab monitor, check serum ketones (4) Uncontrolled diabetes mellitus Conclusion/Plan: pt has A1C is 10.2, uncontrolled DM2. plan: resume home insulin, start SS, ACHS, and hypoglycemia protocol, and hold home Metformin (5) Hyperlipidemia Conclusion/Plan: stable, will resume home statin - Lab Results Fish Bones: 06/01/19 05:00 06/01/19 05:00 Core Measures - Anticipated LOS I expect patient to be DC'd or transferred within 96 hours.: Yes - DVT/VTE - Prophylaxis VTE/DVT Device ordered at admit?: Yes VTE/DVT Prophylaxis med ordered at admit?: Yes
[2019-05-31] MEDS: PANTOPRAZOLE 40 MG VIAL IVP SCH (17:50)
[2019-05-31] MEDS: ACETAMINOPHEN 325 MG TABLET PO PRN ×2 (17:57→21:55)
[2019-05-31] MEDS: SODIUM CHLORIDE 0.9% 1,000 ML IV SCH (17:57)
[2019-05-31] MEDS: SODIUM CHLORIDE FLUSH 0.9% 10 ML SYRINGE IVP SCH (18:03)
[2019-05-31] MEDS ORDERED: METOCLOPRAMIDE 10 MG/2 ML VIAL IVP PRN (18:46)
[2019-05-31] MEDS ORDERED: INSULIN GLARGINE 300 UNIT/3 ML PEN SUBQ SCH (21:00)
[2019-06-01] MEDS: SODIUM CHLORIDE FLUSH 0.9% 10 ML SYRINGE IVP SCH ×2 (01:11→08:14)
[2019-06-01] MEDS: ACETAMINOPHEN 325 MG TABLET PO PRN ×3 (03:41→11:55)
[2019-06-01] MEDS: SODIUM CHLORIDE 0.9% 1,000 ML IV SCH (03:45)
[2019-06-01 05:24] LABS: BASOPHILS # (AUTO) 0.1 10^3/uL (0.0-0.1); BASOPHILS % (AUTO) 0.8 %; EOSINOPHILS # (AUTO) 0.1 10^3/uL (0.0-0.7); EOSINOPHILS % (AUTO) 2.1 %; HGB - HEMOGLOBIN 11.8 g/dL (12.0-16.0); LYMPHOCYTES # (AUTO) 2.1 10^3/uL (1.5-3.5); LYMPHOCYTES % (AUTO) 35.2 %; MEAN CORPUSCULAR HGB CONC 32.2 g/dL (32.0-36.0); MEAN CORPUSCULAR VOLUME 89.9 fL (81.0-99.0); MEAN PLATELET VOLUME 9.8 fL (7.9-10.8); MONOCYTES # (AUTO) 0.4 10^3/uL (0.0-1.0); MONOCYTES % (AUTO) 6.8 %; NEUTROPHILS # (AUTO) 3.3 10^3/uL (1.5-6.6); NEUTROPHILS % (AUTO) 54.8 %; PLT - PLATELET COUNT 198 10^3/uL (130-450); RED BLOOD COUNT 4.07 10^6/uL (4.20-5.40); RED CELL DISTRIBUTION WIDTH 13.6 % (12.0-15.0); WHITE BLOOD COUNT 6.1 x10^3/uL (4.8-10.8)
[2019-06-01 05:31] LABS: CALCIUM 7.5 mg/dL (8.5-10.3); CREATININE 0.6 mg/dL (0.4-1.0)
[2019-06-01] MEDS: PANTOPRAZOLE 40 MG VIAL IVP SCH (06:47)
[2019-06-01] MEDS: INSULIN ASPART 300 UNIT/3 ML PEN SUBQ SCH ×2 (08:00→11:48)
[2019-06-01] MEDS ORDERED: POTASSIUM CHLORIDE 20 MEQ TABLET PO ONE (08:03)
[2019-06-01] MEDS ORDERED: CALCIUM CITRATE 250 MG TABLET PO SCH (09:00)
[2019-06-01] MEDS ORDERED: ENOXAPARIN 40 MG/0.4 ML SYRINGE SUBQ SCH (09:00)
--- NOTE | 2019-06-01 11:15 | PHARMACY PROGRESS NOTE ---
- Best Possible Medication History Admit Date and Time: 05/31/19 1553 Processed by: Pharmacy Medication History completed: Yes Patient Interview: Completed Secondary Source(s): Physician records As the person ultimately responsible for medication therapy, providers are able to order a medication from an existing home medication list in [facility] via the "Reconcile Routine" prior to Confirmation of that medication by is support analyst. Such practice is discouraged except when the physician, in their clinical judgment, deems that a medical need exists for a medication without regard to previous use.
[2019-06-01 11:53] VITALS: BP 109/77
--- NOTE | 2019-06-01 12:45 | Discharge Plan ---
Discharge Plan Problem Reviewed?: Yes Disposition: Home, Self Care Condition: Stable Diet: Diabetic Activity Restrictions: Activity as Tolerated Shower Restrictions: No (fall precaution) Instruction Topics: Abdominal Pain, Diabetes Heart Disease, Diabetes Type 2 Coping Health Concerns: abdominal pain, uncontrolled diabetes Plan of Treatment: your abdominal pain is good controlled and resolved. you tolerate the diet. you likely has virus gastroenteritis. Keep your good hydration, eat health diet. your A1C is 10.2 and is high, advise you control of your glucose intake, and keep medical compliance. Care Goals: stabilization and improvement of your medical conditions Assessment: discussed with you the care plan, and you understood. Additional Instructions or Follow Up instructions: you may followup your PCP in one to two weeks. Should your symptoms return or worsen, you may present ER or call 911 for help. Follow-Up Care: [facility] - Diabetes Ed No Smoking: If you smoke, Please STOP! Call for help. Follow-up with: Salomón Stewart MD [Primary Care Provider] -
--- NOTE | 2019-06-01 12:54 | DISCHARGE SUMMARY ---
Discharge Summary Admit Date: 05/31/19 Discharge Date: 06/01/19 Discharging Provider: Bautista Rascon Primary Care Provider: Dr. Stewart Condition at Discharge: Stable Discharge Disposition: 01 Home, Self Care Discharge Facility Name: home - DIAGNOSES Admission Diagnoses: (1) Left lower quadrant abdominal pain (2) Nausea & vomiting (3) Dehydration (4) Uncontrolled diabetes mellitus (5) Hyperlipidemia Discharge Diagnoses with Status of Each Condition: (1) Left lower quadrant abdominal pain resolved. pt tolerate regular diet. it is likely caused by gastroenteritis (2) Nausea & vomiting resolved (3) Dehydration resolved (4) Uncontrolled diabetes mellitus chronic. pt has A1C 10.2. discussed with pt about how to control her glucose level, medical compliance. pt state she understood (5) Hyperlipidemia stable - HPI History of Present Illness: Ms. Owens is a 43 yrs-old female with a PMH significant for DM2 on insulin for 10 yrs, hyperlipidemia, endometriosis with s/p of hysterectomy, cholecystectomy, appendectomy, who present ER complain abdominal pain. pt report she had lower abdominal pain started about 3am. pt is described as constant radiating around left side to the left back. pt report she had nausea with vomiting. she denies fevers, chill, shortness of breath, cough, chest pain, diarrhea. she also reports that she feels like she can't empty bladder. pt report she saw PCP today morning and advised her to come to ER for a more detailed evaluation. CT of abdomen reveals diverticulosis, 4.7 cm fat-containing supra umbilical hernia otherwise unremarkable. Lab test reveals A1C 10.2 and hyperglycemia at 255, serum ketones is negative. In ER, pt is afebrile, and hemodynamic stable. pt is admitted in observation unit for evaluation of intractable abdominal pain,and nausea and vomiting. pt request full code status - HOSPITAL COURSE Hospital Course: pt was admitted for abdominal pain, nausea and vomiting. CT of abdomen/pelvis reveals unremarkable. after treatment with bowel rest, IVF, and anti-emesis and pain control, pt's abdominal pain is resolved. pt tolerated regular diet without nausea or vomiting. pt request to be d/c to home. The detail hospital course is as the below. (1) Left lower quadrant abdominal pain resolved. pt tolerate regular diet. it is likely caused by gastroenteritis (2) Nausea & vomiting resolved (3) Dehydration resolved (4) Uncontrolled diabetes mellitus chronic. pt has A1C 10.2. discussed with pt about how to control her glucose level, medical compliance. pt state she understood (5) Hyperlipidemia stable - ALLERGIES Allergies/Adverse Reactions: Allergies Allergy/AdvReac Type Severity Reaction Status Date / Time ciprofloxacin [From Cipro] Allergy Anaphylaxis Verified 05/31/19 10:37 shellfish derived Allergy Anaphylaxis Verified 05/31/19 10:37 - MEDICATIONS Home Medications: Ambulatory Orders Medication Instructions Recorded Confirmed Atorvastatin [Lipitor] 20 mg ORAL QPM 10/10/18 06/01/19 Empagliflozin [Jardiance] 25 mg PO DAILY 10/10/18 06/01/19 Insulin Glargine [Lantus Solostar] 20 unit SUBQ QPM #1 pen 10/10/18 06/01/19 metFORMIN [Glucophage] 500 mg PO DAILY 10/10/18 06/01/19 Insulin Aspart [NovoLOG] 15 unit SUBQ TIDWM MDD sliding 06/01/19 06/01/19 scale: ~15 units lisinopriL [Lisinopril] 2.5 mg PO QPM 06/01/19 06/01/19 - PHYSICAL EXAM AT DISCHARGE General Appearance: positive: No acute distress, Alert. negative: Lethargic Eyes Bilateral: positive: Normal inspection, PERRL, EOMI, No lid inflammation ENT: positive: ENT inspection nml, Pharynx nml, No signs of dehydration. nega tive: Purulent nasal drainage Neck: positive: Nml inspection, Thyroid nml, No JVD, Trachea midline. negative: Thyromegaly, Lymphadenopathy (R), Lymphadenopathy (L), Stiff neck, Tracheal deviation Respiratory: positive: Chest non-tender, No respiratory distress, Breath sounds nml. negative: Wheezes, Rales, Rhonchi Cardiovascular: positive: Regular rate & rhythm, No murmur, No gallop. negative: Irregularly irregular, Extrasystoles, Tachycardia, Bradycardia, JVD present, Systolic murmur, Diastolic murmur Peripheral Pulses: positive: 2+ Abdomen: positive: Non-tender, No organomegaly, Nml bowel sounds, No distention. negative: Tenderness, Guarding, Rebound Back: positive: Nml inspection. negative: CVA tenderness (R), CVA tenderness (L) Skin: positive: Color nml, No rash, Warm, Dry. negative: Cyanosis, Diaphoresis, Pallor Extremities: positive: Non-tender, Full ROM, Nml appearance. negative: Calf tenderness, Kimberly's sign/cords Neurologic/Psychiatric: positive: Oriented x3, Motor nml, Sensation nml, Mood/affect nml. negative: Weakness, Sensory loss, Facial droop, Slurred/abnml speech, Depressed mood/affect - LABS Result Diagrams: 06/01/19 05:00 06/01/19 05:00 - SEPSIS Current Stage of Sepsis: Ruled out - FOLLOW UP Follow Up: your abdominal pain is good controlled and resolved. you tolerate the diet. you likely has virus gastroenteritis. Keep your good hydration, eat health diet. your A1C is 10.2 and is high, advise you control of your glucose intake, and keep medical compliance. you may followup your PCP in one to two weeks. Should your symptoms return or worsen, you may present ER or call 911 for help. - TIME SPENT Time Spent in Discharge (Minutes): 30
[2019-06-01] MEDS ORDERED: ATORVASTATIN 10 MG TABLET PO SCH (21:00)
== END 2019-06-01 13:54 | disposition home or self-care (01) ==
LOC: ED 10:24 → MS2 15:53
PROVIDERS: ADMIT Nurse Practitioner Gerontology; ATTEND Nurse Practitioner Gerontology
DX: R10.32 Left lower quadrant pain (principal); R11.2 Nausea with vomiting, unspecified; E86.0 Dehydration; E11.65 Type 2 diabetes mellitus with hyperglycemia; Z79.4 Long term (current) use of insulin; E78.5 Hyperlipidemia, unspecified; Z90.710 Acquired absence of both cervix and uterus; Z90.49 Acquired absence of other specified parts of digestive tract; K57.30 Diverticulosis of large intestine without perforation or abscess without bleeding; K42.9 Umbilical hernia without obstruction or gangrene
CPT/HCPCS: 36415; 51798; 74177; 80048; 80053; 81003; 82009; 83036; 83690; 83735; 84484; 85025; 96361; 96372; 96374; 96375; 96376; 99284; 99285; A9270; G0378; J1170; J1650; J1815; Q9967; 81001; 87086

== ENCOUNTER 2019-06-29 15:06 | Outpatient (CLI) | payer OTHER | END 2019-06-29 15:07 | disposition home or self-care (01) | LOC: COV 15:06 | PROVIDERS: ATTEND Family Medicine | DX: R05 Cough (principal); R50.9 Fever, unspecified | CPT/HCPCS: 81599 ==

== ENCOUNTER 2019-09-30 16:44 | Emergency (ER) | payer OTHER ==
[2019-09-30] MEDS ORDERED: MORPHINE 2 MG/ML CARPUJECT IVP STA ×2 (17:16→19:39)
[2019-09-30 17:21] LABS: BASOPHILS # (AUTO) 0.1 10^3/uL (0.0-0.1); BASOPHILS % (AUTO) 0.9 %; EOSINOPHILS # (AUTO) 0.2 10^3/uL (0.0-0.7); EOSINOPHILS % (AUTO) 2.6 %; HGB - HEMOGLOBIN 14.3 g/dL (12.0-16.0); LYMPHOCYTES # (AUTO) 2.5 10^3/uL (1.5-3.5); LYMPHOCYTES % (AUTO) 31.1 %; MEAN CORPUSCULAR HEMOGLOBIN 30.6 pg (27.0-31.0); MEAN CORPUSCULAR HGB CONC 34.5 g/dL (32.0-36.0); MEAN CORPUSCULAR VOLUME 88.9 fL (81.0-99.0); MEAN PLATELET VOLUME 10.6 fL (7.9-10.8); MONOCYTES # (AUTO) 0.4 10^3/uL (0.0-1.0); MONOCYTES % (AUTO) 5.2 %; NEUTROPHILS # (AUTO) 4.8 10^3/uL (1.5-6.6); NEUTROPHILS % (AUTO) 59.6 %; PLT - PLATELET COUNT 230 10^3/uL (130-450); RED BLOOD COUNT 4.67 10^6/uL (4.20-5.40); RED CELL DISTRIBUTION WIDTH 13.4 % (12.0-15.0); WHITE BLOOD COUNT 8.1 x10^3/uL (4.8-10.8)
[2019-09-30 17:21] LABS: BILIRUBIN,URINE NEGATIVE (NEGATIVE); GLUCOSE, URINE (UA) >=1000 mg/dL (NEGATIVE); KETONES,URINE (UA) NEGATIVE (NEGATIVE); LEUKOCYTE ESTERASE, URINE NEGATIVE (NEGATIVE); NITRITE,URINE NEGATIVE (NEGATIVE); OCCULT BLOOD,URINE NEGATIVE (NEGATIVE); PROTEIN,URINE NEGATIVE (NEGATIVE); UROBILINOGEN,URINE 0.2 (NORMAL) E.U./dL (NORMAL)
[2019-09-30] MEDS ORDERED: IOVERSOL 320 100 ML VIAL IVP ONE ×2 (17:26→18:58)
--- NOTE | 2019-09-30 17:37 | ED Physician Documentation ---
History of Present Illness - Stated complaint Stated Complaint: ABD PX - Chief complaint Chief Complaint: Abd Pain - History obtained from History obtained from: Patient - History of Present Illness Timing: Today Pain level max: 8 Pain level now: 7 - Additonal information Additional information: 43-year-old female with left lower quadrant abdominal pain today. Diarrhea today as well. Feels similar to a prior episode approximately 4 months ago. No cause found at that time. No fevers. No vomiting. Nothing makes it better or worse. No urinary symptoms. Has had a total abdominal hysterectomy and bilateral salpingotomy. Review of Systems Constitutional: denies: Fever, Chills : denies: Dysuria Skin: denies: Rash Musculoskeletal: denies: Neck pain, Back pain Neurologic: denies: Headache PD PAST MEDICAL HISTORY - Past Medical History Past Medical History: Yes Cardiovascular: High cholesterol Endocrine/Autoimmune: Type 2 diabetes DIRECTOR PEDIATRIC: Endometriosis Psych: Anxiety Musculoskeletal: Osteoarthritis - Past Surgical History Past Surgical History: Yes General: Cholecystectomy /DIRECTOR PEDIATRIC: Hysterectomy HEENT: Rhinoplasty - Present Medications Home Medications: Ambulatory Orders Medication Instructions Recorded Confirmed Atorvastatin [Lipitor] 20 mg ORAL QPM 10/10/18 06/01/19 Empagliflozin [Jardiance] 25 mg PO DAILY 10/10/18 06/01/19 Insulin Glargine [Lantus Solostar] 20 unit SUBQ QPM #1 pen 10/10/18 06/01/19 metFORMIN [Glucophage] 500 mg PO DAILY 10/10/18 06/01/19 Insulin Aspart [NovoLOG] 15 unit SUBQ TIDWM MDD sliding 06/01/19 06/01/19 scale: ~15 units lisinopriL [Lisinopril] 2.5 mg PO QPM 06/01/19 06/01/19 Ondansetron Odt [Zofran] 4 mg TL Q6H PRN #20 tablet 09/30/19 Oxycodone HCl/Acetaminophen 1 - 2 each PO Q6H PRN #10 tablet 09/30/19 [Percocet 5-325 mg Tablet] - Allergies Allergies/Adverse Reactions: Allergies Allergy/AdvReac Type Severity Reaction Status Date / Time ciprofloxacin [From Cipro] Allergy Anaphylaxis Verified 09/30/19 16:57 shellfish derived Allergy Anaphylaxis Verified 09/30/19 16:57 - Social History Does the pt smoke?: No Smoking Status: Never smoker Does the pt drink ETOH?: Yes Does the pt have substance abuse?: No - Immunizations Immunizations: TDAP >10years/unknown PD ED PE NORMAL - Vitals Vital signs reviewed: Yes - General General: Alert and oriented X 3, No acute distress, Well developed/nourished - HEENT HEENT: Moist mucous membranes - Neck Neck: Supple, no meningeal sign - Cardiac Cardiac: RRR, Strong equal pulses - Respiratory Respiratory: No respiratory distress, Clear bilaterally - Abdomen Abdomen: Soft, Non distended, Other (Mild tender to palpation left lower quadrant without peritoneal signs.) - Back Back: No CVA TTP - Derm Derm: Warm and dry - Extremities Extremities: No edema - Neuro Neuro: Alert and oriented X 3 - Psych Psych: Normal mood, Normal affect Results - Vitals Vitals: Vital Signs - 24 hr 09/30/19 09/30/19 09/30/19 16:47 19:17 20:03 Temperature 36.9 C 37.0 C Heart Rate 60 73 66 Respiratory 18 14 Rate Blood Pressure 128/82 H 119/73 123/84 H O2 Saturation 99 96 100 Oxygen O2 Source Room air - Labs Labs: Laboratory Tests 09/30/19 09/30/19 09/30/19 16:59 17:13 17:53 WBC 8.1 RBC 4.67 Hgb 14.3 Hct 41.5 MCV 88.9 MCH 30.6 MCHC 34.5 RDW 13.4 Plt Count 230 MPV 10.6 Neut # (Auto) 4.8 Lymph # (Auto) 2.5 Coal # (Auto) 0.4 Eos # (Auto) 0.2 Baso # (Auto) 0.1 Absolute Nucleated RBC 0.00 Nucleated RBC % 0.0 Sodium 142 Potassium 3.5 Chloride 103 Carbon Dioxide 27 Anion Gap 12.0 BUN 16 Creatinine 0.7 Estimated GFR (MDRD) 90 Glucose 150 H Calcium 9.3 Total Bilirubin 0.6 AST 16 ALT 21 Alkaline Phosphatase 56 Total Protein 6.6 L Albumin 4.2 Globulin 2.4 Albumin/Globulin Ratio 1.8 Lipase 34 Urine Color YELLOW Urine Clarity CLEAR Urine pH 6.0 Ur Specific [place] 1.010 Urine Protein NEGATIVE Urine Glucose (UA) >=1000 H Urine Ketones NEGATIVE Urine Occult Blood NEGATIVE Urine Nitrite NEGATIVE Urine Bilirubin NEGATIVE Urine Urobilinogen 0.2 (NORMAL) Ur Leukocyte Esterase NEGATIVE Ur Microscopic Review NOT INDICATED Urine Culture Comments NOT INDICATED - Rads (name of study) CT abdomen pelvis Radiology: Prelim report reviewed, EMP read contemporaneously, See rad report (1. No acute intra-abdominal findings. Diverticulosis. No findings to suggest acute diverticulitis. 2. The appendix is not visualized; however there are no ancillary findings to suggest acute appendicitis. ) PD MEDICAL DECISION MAKING - ED course Complexity details: reviewed results, re-evaluated patient, considered amando esa, d/w patient, d/w family ED course: 43-year-old female with abdominal pain of unclear etiology. No acute lab findings. Pain well controlled. Normal CT scan. We will have her follow-up with her doctor, recommend colonoscopy. Patient counseled regarding signs and symptoms for which I believe and urgent re-evaluation would be necessary. Patient with good understanding of and agreement to plan and is comfortable going home at this time This document was made in part using voice recognition software. While efforts are made to proofread this document, sound alike and grammatical errors may occur. Departure - Departure Disposition: 01 Home, Self Care Clinical Impression: Abdominal pain Qualifiers: Abdominal location: left lower quadrant Qualified Code(s): R10.32 - Left lower quadrant pain Condition: Good Instructions: ED Abdominal Pain Unkn Cause Follow-Up: Salomón Stewart MD [Primary Care Provider] - Within 3 Days Prescriptions: Oxycodone HCl/Acetaminophen [Percocet 5-325 mg Tablet] 1 - 2 each PO Q6H PRN #10 tablet PRN Reason: pain Ondansetron Odt [Zofran] 4 mg TL Q6H PRN #20 tablet PRN Reason: Nausea / Vomiting Comments: The cause of your symptoms is unclear today. Follow-up with your doctor for further care. Your testing is normal today. You should talk with your doctor about having a colonoscopy scheduled for further evaluation. Do not drink alcohol or drive while on narcotic pain medicine. Note that many narcotic pain relievers also contain tylenol/acetaminophen. Please ensure that your total dose of acetaminophen from all sources does not exceed 3 grams (3000mg) per day. You may constipated on this medication, take a stool softener such as "Colace" twice a day while you are on it. Also recommend a hsow-nxy-ctezuyx laxative such as senna or MiraLAX any day that you do not have a bowel movement. If you received narcotic pain medication in the emergency department, do not drive or operate machinery for the next 24 hours. Discharge Date/Time: 09/30/19 20:03
[2019-09-30 17:38] LABS: CLARITY,URINE CLEAR (CLEAR)
[2019-09-30] MEDS ORDERED: ONDANSETRON 4 MG/2 ML VIAL IVP STA ×2 (18:01→19:39)
[2019-09-30 18:10] LABS: ALBUMIN 4.2 g/dL (3.2-5.5); ALBUMIN/GLOBULIN RATIO 1.8 (1.0-2.2); BILIRUBIN,TOTAL 0.6 mg/dL (0.2-1.0); CALCIUM 9.3 mg/dL (8.5-10.3); CREATININE 0.7 mg/dL (0.4-1.0); TOTAL PROTEIN 6.6 g/dL (6.7-8.2)
--- NOTE | 2019-09-30 19:13 | CT Report ---
PROCEDURE: Abdomen/Pelvis W INDICATIONS: LLQ Abdominal pain, diverticulitis suspected CONTRAST: IV CONTRAST: Optiray 320 ml: 100 PO CONTRAST: *NO PO CONTRAST TECHNIQUE: After the administration of oral and intravenous contrast, 5 mm thick sections acquired from the diap hragms to the symphysis. 5 mm thick coronal and sagittal reformats were acquired. For radiation dos e reduction, the following was used: automated exposure control, adjustment of mA and/or kV accordin g to patient size. COMPARISON: None. FINDINGS: Image quality: Excellent. ABDOMEN: Lung bases: Lung bases are clear. Heart size is normal. Solid organs: Liver is diffusely hypodense suggesting fatty infiltration. Spleen is normal in size a nd enhancement. Gallbladder is surgically absent Biliary system is non dilated. Pancreas enhances n ormally. No adrenal nodules. Kidneys demonstrate normal size and enhancement, without hydronephrosi s. Peritoneum and bowel: Bowel loops demonstrate normal wall thickness and caliber. The appendix is not visualized; however there are no ancillary findings such as right lower quadrant fluid or fat strand ing to suggest acute appendicitis. There are extensive sigmoid colon diverticular outpouchings. No mu cosal thickening or pericolonic fat stranding. No free pericolonic fluid or pneumoperitoneum. No free fluid or air. Nodes and vessels: No retroperitoneal or mesenteric adenopathy by size criteria. Aorta and inferior vena cava are normal in size. Miscellaneous: There is a fat-containing ventral hernia. PELVIS: Genitourinary: Bladder wall thickness is normal. The uterus and ovaries are not visualized and may be surgically absent. Miscellaneous: No inguinal hernias or adenopathy. Bones: No suspicious bony lesions. No vertebral body compression fractures. IMPRESSION: 1. No acute intra-abdominal findings. Diverticulosis. No findings to suggest acute diverticulitis. 2. The appendix is not visualized; however there are no ancillary findings to suggest acute appendici tis. Reviewed by: Karie Robin MD on 09/30/2019 7:12 PM PDT Approved by: Karie Robin MD on 09/30/2019 7:12 PM PDT Station ID: [id number]
[2019-09-30 20:05] VITALS: BP 123/84
== END 2019-09-30 20:03 | disposition home or self-care (01) ==
LOC: ED 16:44
DX: R10.32 Left lower quadrant pain (principal); E11.9 Type 2 diabetes mellitus without complications; Z79.4 Long term (current) use of insulin
CPT/HCPCS: 36415; 74177; 80053; 81003; 83690; 85025; 96374; 96375; 96376; 99284; Q9967; 81001; 87086

== ENCOUNTER 2020-01-24 10:13 | Outpatient (CLI) | payer OTHER | END 2020-01-24 10:14 | disposition home or self-care (01) | LOC: COV 10:13 | PROVIDERS: ATTEND Family Medicine | DX: R05 Cough (principal); Z20.828 Contact with and (suspected) exposure to other viral communicable diseases; M79.10 Myalgia, unspecified site; R53.83 Other fatigue; R68.83 Chills (without fever); R09.81 Nasal congestion; J02.9 Acute pharyngitis, unspecified ==

== ENCOUNTER 2020-03-29 08:22 | Outpatient (CLI) | payer OTHER ==
[2020-03-29 15:56] LABS: BASOPHILS # (AUTO) 0.1 10^3/uL (0.0-0.1); BASOPHILS % (AUTO) 0.8 %; EOSINOPHILS # (AUTO) 0.2 10^3/uL (0.0-0.7); EOSINOPHILS % (AUTO) 3.5 %; HGB - HEMOGLOBIN 13.9 g/dL (12.0-16.0); LYMPHOCYTES # (AUTO) 1.7 10^3/uL (1.5-3.5); LYMPHOCYTES % (AUTO) 26.5 %; MEAN CORPUSCULAR HEMOGLOBIN 29.4 pg (27.0-31.0); MEAN CORPUSCULAR HGB CONC 32.1 g/dL (32.0-36.0); MEAN CORPUSCULAR VOLUME 91.7 fL (81.0-99.0); MEAN PLATELET VOLUME 10.3 fL (7.9-10.8); MONOCYTES # (AUTO) 0.3 10^3/uL (0.0-1.0); MONOCYTES % (AUTO) 5.3 %; NEUTROPHILS # (AUTO) 3.9 10^3/uL (1.5-6.6); NEUTROPHILS % (AUTO) 63.4 %; PLT - PLATELET COUNT 250 10^3/uL (130-450); RED BLOOD COUNT 4.72 10^6/uL (4.20-5.40); RED CELL DISTRIBUTION WIDTH 13.4 % (12.0-15.0); WHITE BLOOD COUNT 6.2 x10^3/uL (4.8-10.8)
[2020-03-29 16:05] LABS: ALBUMIN 4.2 g/dL (3.2-5.5); ALBUMIN/GLOBULIN RATIO 1.4 (1.0-2.2); BILIRUBIN,TOTAL 0.6 mg/dL (0.2-1.0); CALCIUM 9.5 mg/dL (8.5-10.3); CREATININE 0.7 mg/dL (0.4-1.0); TOTAL PROTEIN 7.3 g/dL (6.7-8.2)
[2020-03-29 19:11] LABS: HEMOGLOBIN A1c% 8.8 % (4.27-6.07)
== END 2020-03-29 08:23 | disposition home or self-care (01) ==
LOC: LAB.S 08:22
PROVIDERS: ATTEND Internal Medicine
DX: Z00.00 Encounter for general adult medical examination without abnormal findings (principal); E11.9 Type 2 diabetes mellitus without complications; Z79.4 Long term (current) use of insulin
CPT/HCPCS: 36415; 80053; 83036; 85025

== ENCOUNTER 2020-08-15 07:44 | Outpatient (CLI) | payer OTHER ==
[2020-08-15 15:14] LABS: BASOPHILS # (AUTO) 0.1 10^3/uL (0.0-0.1); BASOPHILS % (AUTO) 0.8 %; EOSINOPHILS # (AUTO) 0.2 10^3/uL (0.0-0.7); EOSINOPHILS % (AUTO) 2.7 %; HCT - HEMATOCRIT 44.4 % (37.0-47.0); HGB - HEMOGLOBIN 14.4 g/dL (12.0-16.0); LYMPHOCYTES # (AUTO) 1.6 10^3/uL (1.5-3.5); LYMPHOCYTES % (AUTO) 27.2 %; MEAN CORPUSCULAR HEMOGLOBIN 29.2 pg (27.0-31.0); MEAN CORPUSCULAR HGB CONC 32.4 g/dL (32.0-36.0); MEAN CORPUSCULAR VOLUME 90.1 fL (81.0-99.0); MEAN PLATELET VOLUME 10.6 fL (7.9-10.8); MONOCYTES # (AUTO) 0.4 10^3/uL (0.0-1.0); MONOCYTES % (AUTO) 6.6 %; NEUTROPHILS # (AUTO) 3.7 10^3/uL (1.5-6.6); NEUTROPHILS % (AUTO) 62.2 %; PLT - PLATELET COUNT 234 10^3/uL (130-450); RED BLOOD COUNT 4.93 10^6/uL (4.20-5.40); RED CELL DISTRIBUTION WIDTH 13.6 % (12.0-15.0); WHITE BLOOD COUNT 5.9 x10^3/uL (4.8-10.8)
[2020-08-15 15:18] LABS: ALBUMIN/GLOBULIN RATIO 1.3 (1.0-2.2); BILIRUBIN,TOTAL 0.7 mg/dL (0.2-1.0); CALCIUM 8.7 mg/dL (8.5-10.3); CREATININE 0.7 mg/dL (0.4-1.0); POTASSIUM 3.5 mmol/L (3.5-5.0)
[2020-08-15 20:17] LABS: ESTIMATED AVERAGE GLUCOSE 306 mg/dL (70-100); HEMOGLOBIN A1c% 12.3 % (4.27-6.07)
== END 2020-08-15 07:45 | disposition home or self-care (01) ==
LOC: LAB.S 07:44
PROVIDERS: ATTEND Internal Medicine
DX: Z00.00 Encounter for general adult medical examination without abnormal findings (principal); E11.9 Type 2 diabetes mellitus without complications
CPT/HCPCS: 36415; 80053; 82985; 83036; 85025

== ENCOUNTER 2020-08-21 10:47 | Emergency (ER) | payer OTHER ==
[2020-08-21 11:30] LABS: BASOPHILS # (AUTO) 0.1 10^3/uL (0.0-0.1); BASOPHILS % (AUTO) 0.9 %; EOSINOPHILS # (AUTO) 0.2 10^3/uL (0.0-0.7); EOSINOPHILS % (AUTO) 2.3 %; HCT - HEMATOCRIT 44.9 % (37.0-47.0); HGB - HEMOGLOBIN 15.2 g/dL (12.0-16.0); LYMPHOCYTES # (AUTO) 1.8 10^3/uL (1.5-3.5); LYMPHOCYTES % (AUTO) 26.9 %; MEAN CORPUSCULAR HEMOGLOBIN 29.6 pg (27.0-31.0); MEAN CORPUSCULAR HGB CONC 33.9 g/dL (32.0-36.0); MEAN CORPUSCULAR VOLUME 87.4 fL (81.0-99.0); MEAN PLATELET VOLUME 9.8 fL (7.9-10.8); MONOCYTES # (AUTO) 0.4 10^3/uL (0.0-1.0); MONOCYTES % (AUTO) 5.7 %; NEUTROPHILS # (AUTO) 4.2 10^3/uL (1.5-6.6); NEUTROPHILS % (AUTO) 63.9 %; PLT - PLATELET COUNT 234 10^3/uL (130-450); RED BLOOD COUNT 5.14 10^6/uL (4.20-5.40); RED CELL DISTRIBUTION WIDTH 13.2 % (12.0-15.0); WHITE BLOOD COUNT 6.6 x10^3/uL (4.8-10.8)
[2020-08-21 11:47] LABS: ALBUMIN 4.3 g/dL (3.2-5.5); ALBUMIN/GLOBULIN RATIO 1.3 (1.0-2.2); BILIRUBIN,TOTAL 0.8 mg/dL (0.2-1.0); CALCIUM 9.2 mg/dL (8.5-10.3); CREATININE 0.7 mg/dL (0.4-1.0); POTASSIUM 3.8 mmol/L (3.5-5.0); TOTAL PROTEIN 7.7 g/dL (6.7-8.2)
--- OUTSIDE RECORDS SUMMARY | 2020-08-21 12:07 | EXTERNAL MEDICAL SUMMARY RPT | Continuity of Care Document ---
:1975 Demographics Phone Unavailable Preferred Language Unknown Marital Status Unknown Yazdanism Affiliation Unknown Race Unknown Ethnic Group Unknown Author Organization [facility] Address [address] [phone] Phone Allergies Encounters Medications Problems Results
[2020-08-21] MEDS ORDERED: KETOROLAC 30 MG/ML VIAL IVP STA (13:21)
[2020-08-21] MEDS ORDERED: ONDANSETRON 4 MG/2 ML VIAL IVP STA (13:21)
[2020-08-21] MEDS ORDERED: SODIUM CHLORIDE 0.9% 1,000 ML IV STA (13:21)
[2020-08-21] MEDS ORDERED: HYDROmorphone 1 MG/ML CARPUJECT IVP STA ×2 (13:21→14:36)
--- NOTE | 2020-08-21 13:24 | ED Physician Documentation ---
History of Present Illness - Stated complaint Stated Complaint: BELLY PX - Chief complaint Chief Complaint: Abd Pain - History obtained from History obtained from: Patient - Additonal information Additional information: Patient comes emergency department chief complaint of sharp pain in mid abdomen after sneezing. Patient has a known history of abdominal hernia in the same area and states it always bothers her little bit. However, with forceful movements, the pain gets a lot worse. Patient states that it started to worsen a few days ago but after she had sneezed followed by a cough, she says the pain was excruciating. This happened this morning. Patient denies any nausea or vomiting. She states she is had a decreased appetite for the last couple of days. No change in bowel habits. No fevers or chills. No chest pain or shortness of breath. Patient states she feels a lot of pain with any movement. She has a surgical history of multiple pelvic surgeries related to ovarian cysts and adhesions. She has had both ovaries removed as well as hysterectomy. She also states that the hernia arose after a laparoscopic cholecystectomy that had to be converted into a laparotomy. Review of Systems Ten Systems: 10 systems reviewed and negative Constitutional: reports: Reviewed and negative Eyes: reports: Reviewed and negative Ears: reports: Reviewed and negative Nose: reports: Reviewed and negative Throat: reports: Reviewed and negative Cardiac: reports: Reviewed and negative Respiratory: reports: Reviewed and negative GI: reports: Abdominal Pain. 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: Endometriosis Psych: Anxiety Musculoskeletal: Osteoarthritis - Past Surgical History Past Surgical History: Yes General: Cholecystectomy /TOOL ENGINEER: Hysterectomy HEENT: Rhinoplasty - Present Medications Home Medications: Ambulatory Orders Medication Instructions Recorded Confirmed Atorvastatin [Lipitor] 20 mg ORAL QPM 10/10/18 06/01/19 Empagliflozin [Jardiance] 25 mg PO DAILY 10/10/18 06/01/19 Insulin Glargine [Lantus Solostar] 20 unit SUBQ QPM #1 pen 10/10/18 06/01/19 metFORMIN [Glucophage] 500 mg PO DAILY 10/10/18 06/01/19 Insulin Aspart [NovoLOG] 15 unit SUBQ TIDWM MDD sliding 06/01/19 06/01/19 scale: ~15 units lisinopriL [Lisinopril] 2.5 mg PO QPM 06/01/19 06/01/19 Ondansetron Odt [Zofran] 4 mg TL Q6H PRN #20 tablet 09/30/19 Oxycodone HCl/Acetaminophen 1 - 2 each PO Q6H PRN #10 tablet 09/30/19 [Percocet 5-325 mg Tablet] Metoclopramide [Reglan] 10 mg PO Q6H PRN #20 tablet 10/28/19 HYDROcod/ACETAM 5/325 [Gooding 5/325] 1 - 2 tablet PO Q6H PRN #14 tablet 08/21/20 Ondansetron Odt [Zofran] 4 mg TL Q6H PRN #10 tablet 08/21/20 - Allergies Allergies/Adverse Reactions: Allergies Allergy/AdvReac Type Severity Reaction Status Date / Time ciprofloxacin [From Cipro] Allergy Anaphylaxis Verified 08/21/20 11:07 shellfish derived Allergy Anaphylaxis Verified 08/21/20 11:07 - Social History Does the pt smoke?: No Smoking Status: Never smoker Does the pt drink ETOH?: Yes Does the pt have substance abuse?: No - Immunizations Immunizations: TDAP >10years/unknown PD ED PE NORMAL - Vitals Vital signs reviewed: Yes - General General: Alert and oriented X 3, Other (Moderate distress, appears in pain. Tearful) - HEENT HEENT: Atraumatic, PERRL, EOMI, Moist mucous membranes - Neck Neck: Supple, no meningeal sign - Cardiac Cardiac: RRR, No murmur - Respiratory Respiratory: No respiratory distress, Clear bilaterally - Abdomen Abdomen: Soft, Other (Moderate distention. 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, Normal speech, Other (Grossly normal) - Psych Psych: Normal mood, Normal affect Results - Vitals Vitals: Oxygen O2 Source Room air - Labs Labs: Laboratory Tests 08/21/20 08/21/20 08/21/20 11:22 11:22 13:05 WBC 6.6 RBC 5.14 Hgb 15.2 Hct 44.9 MCV 87.4 MCH 29.6 MCHC 33.9 RDW 13.2 Plt Count 234 MPV 9.8 Neut # (Auto) 4.2 Lymph # (Auto) 1.8 [place] # (Auto) 0.4 Eos # (Auto) 0.2 Baso # (Auto) 0.1 Absolute Nucleated RBC 0.00 Nucleated RBC % 0.0 Sodium 134 L Potassium 3.8 Chloride 99 L Carbon Dioxide 22 Anion Gap 13.0 BUN 16 Creatinine 0.7 Estimated GFR (MDRD) 90 Glucose 386 H Calcium 9.2 Total Bilirubin 0.8 AST 20 ALT 33 Alkaline Phosphatase 65 Total Protein 7.7 Albumin 4.3 Globulin 3.4 Albumin/Globulin Ratio 1.3 Lipase 27 Urine Color YELLOW Urine Clarity CLEAR Urine pH 5.5 Ur Specific [place] 1.025 Urine Protein NEGATIVE Urine Glucose (UA) >=1000 H Urine Ketones 15 H Urine Occult Blood NEGATIVE Urine Nitrite NEGATIVE Urine Bilirubin NEGATIVE Urine Urobilinogen 0.2 (NORMAL) Ur Leukocyte Esterase NEGATIVE Ur Microscopic Review NOT INDICATED Urine Culture Comments NOT INDICATED - Rads (name of study) CT abd/pelvis Radiology: Final report received, EMP read indepedently, See rad report (Fat- containing ventral hernias, no incarceration/strangulation) PD MEDICAL DECISION MAKING - ED course Complexity details: reviewed results, re-evaluated patient, considered differential, d/w patient ED course: Patient was worked up with labs and ultimately, CT scan of the abdomen and pelvis. She was treated with IV fluids, Zofran, Toradol, and Dilaudid. Pt was found to be feeling better on re-evaluation. CT showed abdominal wall hernias without strangulation. Exam had not revealed evidence of incarcerated hernias, and I felt patient was stable for d/c home. We have discussed follow-up and the usual indications for return. Departure - Departure Disposition: Home, Self Care Clinical Impression: Abdominal hernia Qualifiers: Hernia type: incisional Obstruction and gangrene presence: without obstruction or gangrene Qualified Code(s): K43.2 - Incisional hernia without obstruction or gangrene Condition: Stable Instructions: Hernia Prescriptions: HYDROcod/ACETAM 5/325 [[place]ing 5/325] 1 - 2 tablet PO Q6H PRN #14 tablet PRN Reason: Pain Ondansetron Odt [Zofran] 4 mg TL Q6H PRN #10 tablet PRN Reason: Nausea / Vomiting Comments: Your CT scan does not show any evidence of entrapment of the herniated tissue or inflammation or circulatory compromise. Most likely, the opening that causes the hernia has been strained and microtears in the tissue are the cause of the sharp pain you are having. Extra-support helps with some of this, and as such, you have been given a prescription for an abdominal binder. You may take the pain and nausea medication, as we have discussed, as well. If you are not feeling better if the next few weeks and the pain and symptoms are very debilitating or interfering significantly with your life activities, then you may follow-up with a surgeon to discuss potential options for surgical management of your hernias. Please follow-up with your doctor as you are scheduled to do, as well. Discharge Date/Time: 08/21/20 16:09
[2020-08-21 13:52] LABS: BILIRUBIN,URINE NEGATIVE (NEGATIVE); GLUCOSE, URINE (UA) >=1000 mg/dL (NEGATIVE); KETONES,URINE (UA) 15 mg/dL (NEGATIVE); LEUKOCYTE ESTERASE, URINE NEGATIVE (NEGATIVE); NITRITE,URINE NEGATIVE (NEGATIVE); OCCULT BLOOD,URINE NEGATIVE (NEGATIVE); PH,URINE 5.5 PH (5.0-7.5); PROTEIN,URINE NEGATIVE (NEGATIVE); UROBILINOGEN,URINE 0.2 (NORMAL) E.U./dL (NORMAL)
[2020-08-21 13:54] LABS: CLARITY,URINE CLEAR (CLEAR)
[2020-08-21] MEDS ORDERED: IOVERSOL 320 100 ML VIAL IVP ONE ×2 (14:29→20:42)
--- NOTE | 2020-08-21 15:34 | CT Report ---
PROCEDURE: Abdomen/Pelvis W INDICATIONS: increased pain at hernia site CONTRAST: IV CONTRAST: Optiray 320 ml: 100 PO CONTRAST: *NO PO CONTRAST TECHNIQUE: After the administration of IV contrast, 5 mm thick sections acquired from the diaphragms to the symp hysis. 5 mm thick coronal and sagittal reformats were acquired. For radiation dose reduction, the f ollowing was used: automated exposure control, adjustment of mA and/or kV according to patient size. COMPARISON: CT abdomen pelvis 09/30/2019 FINDINGS: Image quality: Excellent. ABDOMEN: Lung bases: Lung bases are clear. Heart size is normal. Solid organs: Liver is enlarged with steatosis. The spleen is unremarkable. Gallbladder has been rem luiza Biliary system is non dilated. Pancreas enhances normally. No adrenal nodules. Kidneys demon strate normal size and enhancement, without hydronephrosis. Peritoneum and bowel: Bowel loops demonstrate normal wall thickness and caliber. No free fluid or a ir. Colonic diverticula are present. Nodes and vessels: No retroperitoneal or mesenteric adenopathy by size criteria. Aorta and inferior vena cava are normal in size. Miscellaneous: Fat-containing supraumbilical ventral hernia with rectus diastases measuring 2.4 cm is noted. There is a second umbilical fat-containing hernia with rectus diastases measuring approximate ly 8 mm. PELVIS: Genitourinary: Bladder wall thickness is normal. Miscellaneous: No inguinal hernias or adenopathy. Bones: No suspicious bony lesions. No vertebral body compression fractures. IMPRESSION: 1. Fat-containing ventral hernias as above. No bowel herniation. There is relatively stable compared to 2019. 2. Diverticulosis. Reviewed by: Georgia Cantu MD on 08/21/2020 3:33 PM PDT Approved by: Georgia Cantu MD on 08/21/2020 3:33 PM PDT Station ID: [id number]
[2020-08-21 16:07] VITALS: BP 128/84
== END 2020-08-21 16:09 | disposition home or self-care (01) ==
LOC: ED 10:47
DX: K43.2 Incisional hernia without obstruction or gangrene (principal); E11.9 Type 2 diabetes mellitus without complications; Z79.4 Long term (current) use of insulin
CPT/HCPCS: 36415; 74177; 80053; 81003; 83690; 85025; 96374; 96375; 96376; 99284; J1170; Q9967; 81001; 87086

== ENCOUNTER 2020-09-13 07:47 | Outpatient (CLI) | payer OTHER | END 2020-09-13 07:48 | disposition home or self-care (01) | LOC: LAB.S 07:47 | PROVIDERS: ATTEND Internal Medicine | DX: E11.9 Type 2 diabetes mellitus without complications (principal); Z79.4 Long term (current) use of insulin | CPT/HCPCS: 82985 ==

== ENCOUNTER 2020-10-22 07:03 | Outpatient (CLI) | payer OTHER | END 2020-10-22 07:04 | disposition home or self-care (01) | LOC: LAB.S 07:03 | PROVIDERS: ATTEND Internal Medicine | DX: E11.9 Type 2 diabetes mellitus without complications (principal); Z79.4 Long term (current) use of insulin | CPT/HCPCS: 82985 ==

== ENCOUNTER 2020-11-15 07:33 | Outpatient (CLI) | payer OTHER ==
[2020-11-15 20:19] LABS: ESTIMATED AVERAGE GLUCOSE 148 mg/dL (70-100); HEMOGLOBIN A1c% 6.8 % (4.27-6.07)
== END 2020-11-15 07:34 | disposition home or self-care (01) ==
LOC: LAB.S 07:33
PROVIDERS: ATTEND Internal Medicine
DX: E11.9 Type 2 diabetes mellitus without complications (principal)
CPT/HCPCS: 36415; 83036

== ENCOUNTER 2020-11-28 06:20 | Inpatient (IN) | payer OTHER ==
[2020-11-28] MEDS ORDERED: LACTATED RINGERS 1,000 ML IV ONE ×3 (06:39→11:02)
[2020-11-28] MEDS ORDERED: BUPIVACAINE 0.25% PF 30 ML VIAL ONE ×2 (07:03→09:07)
[2020-11-28] MEDS ORDERED: ATROPINE ABBOJECT 1 MG/10 ML SYRINGE IVP PRN (07:07)
[2020-11-28] MEDS ORDERED: HYDROmorphone 0.5 MG/0.5 ML SYRINGE IVP PRN (07:07)
[2020-11-28] MEDS ORDERED: NALOXONE 0.4 MG/ML VIAL IVP PRN (07:07)
[2020-11-28] MEDS ORDERED: fentaNYL 100 MCG/2 ML VIAL IVP PRN (07:07)
[2020-11-28] MEDS ORDERED: ONDANSETRON 4 MG/2 ML VIAL IVP PRN (07:07)
[2020-11-28] MEDS ORDERED: MORPHINE 2 MG/ML CARPUJECT IVP PRN (07:07)
--- NOTE | 2020-11-28 07:18 | ANESTHESIA ---
Pre-Anesthesia VS, & Labs - Diagnosis ventral incisional hernia - Procedure laparoscopic ventral hernia repair Vital Signs: Temp Pulse Resp BP Pulse Ox 35.8 C L 69 18 122/72 97 11/28/20 06:43 11/28/20 06:43 11/28/20 06:43 11/28/20 06:43 11/28/20 06:43 Height: 5 ft 6 in Weight (kg): 97 kg Body Mass Index: 34.4 BMI Classification: Obese - NPO >8 hours - Is Patient ?: Not Applicable - Lab Results Current Lab Results: Laboratory Tests 11/28/20 07:03: POC Whole Bld Glucose 162 H Home Medications and Allergies Active Medications Atropine Sulfate (Atropine Abboject 1 Mg/10 Ml Syringe) 0.5 mg IVP Q5M PRN PRN Reason: Bradycardia Stop: 11/29/20 07:07 Fentanyl (Fentanyl 100 Mcg/2 Ml Vial) 25 - 50 mcg IVP Q5M PRN PRN Reason: BREAKTHROUGH PAIN (2nd Choice) Stop: 11/29/20 07:07 Hydromorphone HCl (Hydromorphone 0.5 Mg/0.5 Ml Syringe) 0.2 - 0.6 mg IVP Q5M PRN PRN Reason: PAIN (First Choice) Stop: 11/29/20 07:07 Lactated Ringer's (Lr) 1,000 mls @ 100 mls/hr IV .Q10H TRACIE Stop: 11/28/20 17:59 Morphine Sulfate (Morphine 2 Mg/Ml Carpuject) 2 - 4 mg IVP Q5M PRN PRN Reason: PAIN (3rd Choice) Stop: 11/29/20 07:07 Naloxone HCl (Naloxone 0.4 Mg/Ml Vial) 0.1 mg IVP Q2M PRN PRN Reason: RESP RATE <8 Stop: 11/29/20 07:07 Ondansetron HCl (Ondansetron 4 Mg/2 Ml Vial) 4 mg IVP ONCE PRN PRN Reason: N/V (First Choice) Stop: 11/29/20 07:07 Scopolamine HBr (Scopolamine Patch) 1 patch TOP Q3D TRACIE Atorvastatin [Lipitor] 20 mg ORAL QPM 10/10/18 metFORMIN [Glucophage] 500 mg PO BID 10/10/18 Insulin Aspart [NovoLOG] 18 - 20 unit SUBQ TIDWM MDD sliding scale: ~15 units 06/01/19 lisinopriL [Lisinopril] 2.5 mg PO QPM 06/01/19 Hyoscyamine Sulfate 0.125 mg PO Q6HR PRN 11/27/20 Insulin Glargine [Lantus Solostar] 20 - 22 unit SUBQ QPM 11/27/20 Omeprazole 20 mg PO DAILY 11/27/20 Allergies/Adverse Reactions: Allergies Allergy/AdvReac Type Severity Reaction Status Date / Time acetaminophen [From Vicodin] Allergy Intermediate Nausea Verified 11/28/20 07:14 hydrocodone [From Vicodin] Allergy Intermediate Nausea Verified 11/28/20 07:14 ciprofloxacin [From Cipro] Allergy Anaphylaxis Verified 08/21/20 11:07 shellfish derived Allergy Anaphylaxis Verified 08/21/20 11:07 Anes History & Medical History - Anesthetic History Anesthesia Complications: reports: Post-Operative Nausea/Vomiting (required return visit for IV fluids) - Medical History Cardiovascular: reports: Hypertension, High cholesterol Pulmonary: reports: None Gastrointestinal: reports: GERD Urinary: reports: None Neuro: reports: None Musculoskeletal: reports: Osteoarthritis Endocrine/Autoimmune: reports: Type 2 diabetes Skin: reports: None Smoking Status: Never smoker Psychosocial: reports: Anxiety, Cannabis (edibles 2-3x per week), Other (PTSD) History of Cancer?: No - Surgical History General: reports: Cholecystectomy Eyes Ears Nose Throat (EENT): reports: Rhinoplasty Gynecologic: reports: Hysterectomy, Oophrectomy Exam General: Alert, Oriented x3, Cooperative, No acute distress Dental: WNL Mouth Openin Fingerbreadth Neck Mobility: Normal Mallampati classification: II Thyromental Distance: 4-6 cm Mental/Cognitive Status: Alert/Oriented X3, Normal for patient Plan Anesthesia Type: General Consent for Procedure(s) Verified and Reviewed: Yes Code Status: Attempt Resuscitation ASA classification: 2-Mild systemic disease Is this case an emergency?: No
[2020-11-28] MEDS ORDERED: SCOPOLAMINE PATCH TOP SCH (08:00)
[2020-11-28] MEDS ORDERED: LACTATED RINGERS 1,000 ML IV SCH (08:00)
[2020-11-28] MEDS ORDERED: BUPIVACAINE 0.25% PF 30 ML VIAL SUBQ ONE ×2 (08:04→09:35)
--- NOTE | 2020-11-28 09:06 | PHARMACY PROGRESS NOTE ---
- Best Possible Medication History Admit Date and Time: 11/28/20 0620 Processed by: Nursing Medication History completed: Yes (MED REC COMPLETED BY NURSING) As the person ultimately responsible for medication therapy, providers are able to order a medication from an existing home medication list in [facility] via the "Reconcile Routine" prior to Confirmation of that medication by support architect. Such practice is discouraged except when the physician, in their clinical judgment, deems that a medical need exists for a medication without regard to previous use.
[2020-11-28] MEDS ORDERED: PROCHLORPERAZINE 10 MG/2 ML VIAL IVP PRN (10:04)
[2020-11-28] MEDS ORDERED: ONDANSETRON ODT 4 MG TABLET TL PRN (10:04)
[2020-11-28] MEDS ORDERED: oxyCODONE 5 MG TABLET PO PRN (10:04)
[2020-11-28] MEDS ORDERED: SODIUM CHLORIDE FLUSH 0.9% 10 ML SYRINGE IVP PRN (10:04)
[2020-11-28] MEDS: HYDROmorphone 1 MG/ML CARPUJECT ONE ×2 (10:20→10:30)
[2020-11-28] MEDS: ONDANSETRON 4 MG/2 ML VIAL IVP PRN ×2 (10:22→19:22)
[2020-11-28] MEDS ORDERED: ONDANSETRON 4 MG/2 ML VIAL ONE (10:26)
[2020-11-28] MEDS ORDERED: PROMETHAZINE INJ 6.25 MG in SODIUM CHLORIDE 0.9% 50 ML IV PRN (10:32)
--- NOTE | 2020-11-28 10:34 | OPERATIVE REPORT ---
Operative Report - General Admit Date: 11/28/20 Procedure Date: 11/28/20 Planned Procedure: laparoscopic incisional hernia repair Pre-Op Diagnosis: Incisional hernia Procedure Performed: Laparoscopic incisional hernia repair Post Op Diagnosis: Incarcerated incisional hernia and umbilical hernia - Procedure Note Primary Surgeon: sondra magana md Anesthesia Technique: General ET tube, Local Pathology: none Estimated Blood Loss (mL): 5 Drain/Tube Type: Other (none) Indications: painful hernia bulge Findings: omentum and small bowel adherent to abdominal wall large diastasis incacerated 4 to 5 cm incisional hernia incarcerated 2.5 umbilical hernia mesh 6 x 8 inch ventyralight Complications: none - Other Other Information/Narrative: The patient was properly identified brought to the operating room and placed in supine position. Sequential compression devices were placed. General endotracheal anesthesia was induced. Ewing catheter was placed. She was prepped and draped in a sterile fashion and given preoperative antibiotics. Local anesthetic was given to incision areas. A 2.5 cm left upper quadrant incision was made. Dissection proceeded down to the fascia. The fascia was lifted upwards and Veress needle placed. An 11 mm trocar was placed with 30 degree scope. There was no evidence of injury from Veress needle or trocar placement. The entire omentum was adherent to the abdominal wall. A 5 mm trocar was placed in the right upper quadrant and a 5 mm trocar was placed in the left lower quadrant. Omentum was carefully taken down. In the right lower quadrant a loop of small bowel was adherent to the abdominal wall. This was taken down sharply without injury. In the very lower lateral right lower quad rant: Was adherent to the abdominal wall. This was not taken down. A 5 mm trocar was placed in the right lower quadrant. She had an incarcerated 4 to 5 cm incisional hernia approximately 6 cm cephalad of the of an incarcerated 2.5 cm umbilical hernia. 6 x 8 inch ventral light mesh was placed intra-abdominal and secured to the abdominal wall with 6 interrupted 0 Ethibond sutures. The sutures were placed through and through the abdominal wall with small nicks in the skin and use of a fascia stitch passer. The mesh was further secured with CapSure tacks. There were no apparent complications. The 11 mm trocar was closed with a [id number] 0 Vicryl. Trochars were removed under direct vision and hemostasis assured. And was closed with buried interrupted or running 4-0 Monocryl subcuticular suture. Dressings were applied. She tolerated the procedure well
[2020-11-28] MEDS ORDERED: PROMETHAZINE 25 MG/1 ML VIAL ONE (10:39)
--- NOTE | 2020-11-28 10:39 | ANESTHESIA POST OP EVALUATION ---
Anesthesia Post Eval - Post Anesthesia Eval Vitals: Last Vital Signs Temp 36.3 C L 11/28/20 10:00 Pulse 73 11/28/20 10:36 Resp 11 L 11/28/20 10:36 BP 101/66 11/28/20 10:36 Pulse Ox 95 11/28/20 10:36 CV Function Including HR & BP: Stable Pain Control: Satisfactory Nausea & Vomiting: Addtional Therapies Ordered Mental Status: Baseline Respiratory Status: Airway Patent Hydration Status: Satisfactory Anesthesia Complications: None
[2020-11-28] MEDS: HYDROmorphone 0.5 MG/0.5 ML SYRINGE IVP PRN ×3 (12:04→19:22)
[2020-11-28] MEDS: INSULIN ASPART 300 UNIT/3 ML PEN SUBQ SCH ×3 (12:06→21:08)
[2020-11-28] MEDS: D5.45NS W/20 MEQ KCL 1,000 ML IV SCH (12:07)
[2020-11-28] MEDS ORDERED: PROPOFOL 200 MG/20 ML VIAL IVP ONE (12:34)
[2020-11-28] MEDS ORDERED: DEXAMETHASONE 4 MG/ML VIAL IVP ONE (12:34)
[2020-11-28] MEDS ORDERED: LIDOCAINE-MPF 2% 5 ML VIAL TD ONE (12:34)
[2020-11-28] MEDS ORDERED: diphenhydrAMINE INJ 50 MG/ML VIAL IVP ONE (12:34)
[2020-11-28] MEDS ORDERED: KETOROLAC 30 MG/ML VIAL IVP ONE (12:34)
[2020-11-28] MEDS ORDERED: ACETAMINOPHEN 1,000 MG/100 ML 100 ML IV ONE (12:34)
[2020-11-28] MEDS ORDERED: CEFAZOLIN SODIUM IN 0.9 % NACL 2 GM/100 ML BAG IV ONE (12:34)
[2020-11-28] MEDS ORDERED: ROCURONIUM 50 MG/5 ML VIAL IVP ONE (12:34)
[2020-11-28] MEDS ORDERED: fentaNYL 100 MCG/2 ML VIAL IVP ONE (12:34)
[2020-11-28] MEDS ORDERED: SUGAMMADEX 200 MG/2 ML VIAL IVP ONE (12:34)
[2020-11-28] MEDS ORDERED: MIDAZOLAM 2 MG/2 ML VIAL IVP ONE (12:34)
[2020-11-28] MEDS ORDERED: ONDANSETRON 4 MG/2 ML VIAL IVP ONE (12:34)
[2020-11-28] MEDS: KETOROLAC 15 MG/ML VIAL IVP PRN ×2 (16:14→22:05)
[2020-11-28] MEDS: metFORMIN 500 MG TABLET PO SCH (17:00)
[2020-11-28] MEDS: SODIUM CHLORIDE FLUSH 0.9% 10 ML SYRINGE IVP SCH ×2 (17:01→23:21)
[2020-11-28] MEDS: ATORVASTATIN 10 MG TABLET PO SCH (21:08)
[2020-11-28] MEDS: INSULIN GLARGINE 300 UNIT/3 ML PEN SUBQ SCH (21:09)
[2020-11-29] MEDS: D5.45NS W/20 MEQ KCL 1,000 ML IV SCH ×2 (01:18→15:02)
[2020-11-29] MEDS: ONDANSETRON 4 MG/2 ML VIAL IVP PRN (01:22)
[2020-11-29] MEDS: HYDROmorphone 0.5 MG/0.5 ML SYRINGE IVP PRN (01:22)
[2020-11-29] MEDS: KETOROLAC 15 MG/ML VIAL IVP PRN ×3 (04:06→19:04)
[2020-11-29] MEDS: PANTOPRAZOLE 40 MG TABLET PO SCH (06:23)
[2020-11-29] MEDS: INSULIN ASPART 300 UNIT/3 ML PEN SUBQ SCH ×4 (07:48→21:10)
[2020-11-29] MEDS: HEPARIN 5,000 UNIT/ML VIAL SUBQ SCH ×2 (08:31→21:08)
[2020-11-29] MEDS: SODIUM CHLORIDE FLUSH 0.9% 10 ML SYRINGE IVP SCH ×2 (08:32→17:25)
[2020-11-29] MEDS: metFORMIN 500 MG TABLET PO SCH ×2 (08:32→17:25)
[2020-11-29] MEDS: ACETAMINOPHEN 325 MG TABLET PO PRN (15:02)
[2020-11-29] MEDS ORDERED: INSULIN GLARGINE 300 UNIT/3 ML PEN SUBQ SCH (21:00)
[2020-11-29] MEDS: ATORVASTATIN 10 MG TABLET PO SCH (21:10)
[2020-11-29] MEDS: INSULIN GLARGINE 300 UNIT/3 ML PEN SUBQ SCH (21:11)
--- NOTE | 2020-11-29 21:38 | PROVIDER PROGRESS NOTE ---
Subjective - Subjective Pt reports feeling: Improved (still very painful with movement, coughing. no nausea) Objective - Vital Signs/Intake & Output Reviewed Vital Signs: Yes Vital Signs: Vital Signs x48h Temp Pulse Resp BP Pulse Ox 11/29/20 15:48 36.8 C 56 L 16 121/83 H 98 Intake & Output: Intake & Output 11/26/20 11/27/20 11/28/20 11/29/20 23:59 23:59 23:59 23:59 Intake Total 2370 4408.75 Output Total 3880 3350 Balance -1510 1058.75 - Objective General Appearance: positive: No acute distress, Alert Respiratory: positive: No respiratory distress Abdomen: positive: No distention, Other (dressings c/d/i no erythema) Neurologic/Psychiatric: positive: Oriented x3, Mood/affect nml - Lab Results Other Labs: Lab Results x24hrs 11/29/20 Range/Units 20:40 POC Whole Bld Glucose 157 H (70 - 100) mg/dL Assessment/Plan - Problem List (1) Incisional hernia Impression: painful with movement. d/c scott in am. if pain manageable and able to ambulate safely plan home tomorrow
[2020-11-30] MEDS: SODIUM CHLORIDE FLUSH 0.9% 10 ML SYRINGE IVP SCH ×2 (00:14→08:32)
[2020-11-30] MEDS: KETOROLAC 15 MG/ML VIAL IVP PRN ×2 (02:18→08:32)
[2020-11-30] MEDS: ACETAMINOPHEN 325 MG TABLET PO PRN (05:47)
[2020-11-30] MEDS: PANTOPRAZOLE 40 MG TABLET PO SCH (05:47)
[2020-11-30 07:49] VITALS: BP 121/67
[2020-11-30] MEDS: INSULIN ASPART 300 UNIT/3 ML PEN SUBQ SCH ×2 (08:35→11:40)
[2020-11-30] MEDS: metFORMIN 500 MG TABLET PO SCH (08:35)
[2020-11-30] MEDS: HEPARIN 5,000 UNIT/ML VIAL SUBQ SCH (08:37)
[2020-11-30] MEDS: D5.45NS W/20 MEQ KCL 1,000 ML IV SCH (10:17)
--- NOTE | 2020-11-30 11:20 | Discharge Plan ---
Discharge Plan Problem Reviewed?: Yes Disposition: Home, Self Care Condition: Good Prescriptions: traMADol [Ultram] 50 mg PO Q6H PRN #30 tablet PRN Reason: Pain Ondansetron Odt [Zofran Odt] 4 mg PO Q6H PRN #15 tablet PRN Reason: Nausea / Vomiting Diet: Regular Activity Restrictions: Activity as Tolerated Shower Restrictions: No Driving Restrictions: No Instruction Topics: Hernia Repair Laparoscopic Dc Additional Instructions or Follow Up instructions: Follow up in the surgery office in about a week and as needed [phone] No Smoking: If you smoke, Please STOP! Call for help. Follow-up with: Sebastian Narayan MD [Primary Care Provider] - Gian Harper MD [Provider Admit Priv/Credential] -
--- NOTE | 2020-11-30 11:22 | DISCHARGE SUMMARY ---
"Discharge Summary Condition at Discharge: Good Discharge Disposition: 01 Home, Self Care - DIAGNOSES Admission Diagnoses: Incisional hernia Discharge Diagnoses with Status of Each Condition: Home in good condition after repair - HPI History of Present Illness: History of multiple surgeries and painful incisional hernia. - CONSULTS | PROCEDURES Procedures: Laparoscopic incisional hernia repair and scott catheter placement - HOSPITAL COURSE Hospital Course: Daily improvement in regards to ileus and pain. - ALLERGIES Allergies/Adverse Reactions: Allergies Allergy/AdvReac Type Severity Reaction Status Date / Time hydrocodone [From Vicodin] Allergy Intermediate Nausea Verified 11/28/20 07:14 ciprofloxacin [From Cipro] Allergy Anaphylaxis Verified 08/21/20 11:07 shellfish derived Allergy Anaphylaxis Verified 08/21/20 11:07 - MEDICATIONS Home Medications: Ambulatory Orders Medication Instructions Recorded Confirmed Atorvastatin [Lipitor] 20 mg ORAL QPM 10/10/18 11/28/20 metFORMIN [Glucophage] 500 mg PO BID 10/10/18 11/28/20 Insulin Aspart [NovoLOG] 18 - 20 unit SUBQ TIDWM MDD 06/01/19 11/28/20 sliding scale: ~15 units lisinopriL [Lisinopril] 2.5 mg PO QPM 06/01/19 11/28/20 Hyoscyamine Sulfate 0.125 mg PO Q6HR PRN 11/27/20 11/28/20 Insulin Glargine [Lantus Solostar] 20 - 22 unit SUBQ QPM 11/27/20 11/28/20 Omeprazole 20 mg PO DAILY 11/27/20 11/28/20 Ondansetron Odt [Zofran Odt] 4 mg PO Q6H PRN #15 tablet 11/30/20 traMADol [Ultram] 50 mg PO Q6H PRN #30 tablet 11/30/20 - PHYSICAL EXAM AT DISCHARGE General Appearance: positive: No acute distress, Alert Eyes Bilateral: positive: PERRL, EOMI ENT: positive: No signs of dehydration Neck: positive: No JVD Respiratory: positive: No respiratory distress Abdomen: positive: No distention, Other (dressings c/d/i without erythema) Neurologic/Psychiatric: positive: Oriented x3"
== END 2020-11-30 12:35 | disposition home or self-care (01) | DRG 355 ==
LOC: MS2 06:20
PROVIDERS: ADMIT Surgery; ATTEND Surgery
PROC: 0WUF4JZ Supplement Abdominal Wall with Synthetic Substitute, Percutaneous Endoscopic Approach (ICD-10-PCS; principal; 2020-11-28 07:30)
DX: K43.0 Incisional hernia with obstruction, without gangrene (principal); K42.0 Umbilical hernia with obstruction, without gangrene; M62.08 Separation of muscle (nontraumatic), other site; E66.9 Obesity, unspecified; Z68.34 Body mass index [BMI] 34.0-34.9, adult; E11.9 Type 2 diabetes mellitus without complications; Z79.4 Long term (current) use of insulin; I10 Essential (primary) hypertension; F41.9 Anxiety disorder, unspecified; F43.10 Post-traumatic stress disorder, unspecified
CPT/HCPCS: A9270; C1781; J0131; J0690; J1170; J1200; J1815; J3490; J7040; J7120

== ENCOUNTER 2020-12-05 10:03 | Emergency (ER) | payer OTHER ==
--- NOTE | 2020-12-05 10:34 | ED Physician Documentation ---
PD HPI ABD PAIN - Stated complaint Stated Complaint: ABD PX - POST SURGERY - Chief complaint Chief Complaint: Abd Pain - History obtained from History obtained from: Patient - History of Present Illness Timing - onset: How many days ago (4-6) Timing - details: Gradual onset Quality: Pain Location: LUQ, LLQ, Other (at trochar sites) Associated symptoms: Nausea, Vomiting, Diarrhea, Other (No BM since D/C excet this morning.). No: Fever Recently seen: Surgery - Additional information Additional information: 44-year-old woman has had multiple abdominal surgeries and had a ventral hernia repair laparoscopically 1 week ago. She said she was doing fine and was discharged on Thursday. Yesterday she started vomiting stomach acid and has not been able to quit. She had not had a bowel movement since discharge until this morning has not had any flatus for the past couple of days. She is having pain at the surgical site tickly along the left trocar sites. Denies any history of small bowel obstruction despite multiple abdominal surgeries for endometriosis, ovarian cysts, appendectomy and cholecystectomy. She complains of increased urination without any burning. No fever. She is a insulin-dependent diabetic but has not taken any medications for the past 24 hours because of the vomiting. She is use the Zofran at home without relief. Denies fever. Review of Systems Constitutional: denies: Fever Nose: denies: Congestion Throat: denies: Sore throat Cardiac: denies: Chest pain / pressure Respiratory: denies: Dyspnea, Cough GI: reports: Abdominal Pain, Nausea, Vomiting, Constipation : reports: Frequency. 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: Endometriosis : None HEENT: Chronic vision loss Psych: Anxiety Musculoskeletal: Osteoarthritis Derm: None - Past Surgical History Past Surgical History: Yes General: Cholecystectomy /SPORTS REPORTER: Hysterectomy, Oophrectomy HEENT: Rhinoplasty - Present Medications Home Medications: Ambulatory Orders Medication Instructions Recorded Confirmed Atorvastatin [Lipitor] 20 mg ORAL QPM 10/10/18 11/28/20 metFORMIN [Glucophage] 500 mg PO BID 10/10/18 11/28/20 Insulin Aspart [NovoLOG] 18 - 20 unit SUBQ TIDWM MDD 06/01/19 11/28/20 sliding scale: ~15 units lisinopriL [Lisinopril] 2.5 mg PO QPM 06/01/19 11/28/20 Hyoscyamine Sulfate 0.125 mg PO Q6HR PRN 11/27/20 11/28/20 Insulin Glargine [Lantus Solostar] 20 - 22 unit SUBQ QPM 11/27/20 11/28/20 Omeprazole 20 mg PO DAILY 11/27/20 11/28/20 Ondansetron Odt [Zofran Odt] 4 mg PO Q6H PRN #15 tablet 11/30/20 traMADol [Ultram] 50 mg PO Q6H PRN #30 tablet 11/30/20 Promethazine Supp [Phenergan Supp] 25 mg MD Q8H #6 supp 12/05/20 - Allergies Allergies/Adverse Reactions: Allergies Allergy/AdvReac Type Severity Reaction Status Date / Time hydrocodone [From Vicodin] Allergy Intermediate Nausea Verified 12/05/20 10:11 ciprofloxacin [From Cipro] Allergy Anaphylaxis Verified 12/05/20 10:11 shellfish derived Allergy Anaphylaxis Verified 12/05/20 10:11 - Social History Does the pt smoke?: No Smoking Status: Never smoker Does the pt drink ETOH?: Yes Does the pt have substance abuse?: No - Immunizations Immunizations: TDAP >10years/unknown PD ED PE NORMAL - Vitals Vital signs reviewed: Yes - General General: Alert and oriented X 3, Well developed/nourished, Other (Looks in pain , lie she does not feel well) - HEENT HEENT: Atraumatic, PERRL, Other (no scleral icterus) - Neck Neck: No adenopathy - Cardiac Cardiac: RRR, No murmur - Respiratory Respiratory: No respiratory distress, Clear bilaterally - Abdomen Abdomen: Normal bowel sounds, Soft, Other (Tender at L abd at 2 trochar sites that have surrounding bruising. No drainage or erythema) - Derm Derm: Other (multiple trochar sites on abd) - Extremities Extremities: No edema - Neuro Neuro: Alert and oriented X 3, No motor deficit, No sensory deficit, Normal speech - Psych Psych: Normal mood Results - Vitals Vitals: Vital Signs - 24 hr 0912/05/20 12/05/20 10:03 10:11 10:43 Temperature 36 C L Heart Rate 68 68 68 Respiratory 20 18 16 Rate Blood Pressure 133/84 H 140/83 H 130/80 O2 Saturation 97 99 98 12/05/20 12:15 Temperature Heart Rate 80 Respiratory 19 Rate Blood Pressure 135/83 H O2 Saturation 98 Oxygen O2 Source Room air - Labs Labs: Laboratory Tests 12/05/20 12/05/20 12/05/20 10:30 10:30 11:04 WBC 11.3 H RBC 4.40 Hgb 13.4 Hct 40.7 MCV 92.5 MCH 30.5 MCHC 32.9 RDW 13.3 Plt Count 314 MPV 10.0 Neut # (Auto) 9.1 H Lymph # (Auto) 1.1 L [place] # (Auto) 0.5 Eos # (Auto) 0.5 Baso # (Auto) 0.1 Absolute Nucleated RBC 0.00 Nucleated RBC % 0.0 Sodium 142 Potassium 3.8 Chloride 103 Carbon Dioxide 27 Anion Gap 12.0 BUN 13 Creatinine 0.8 Estimated GFR (MDRD) 77 L Glucose 174 H Lactic Acid 1.0 Calcium 9.3 Total Bilirubin 0.9 AST 28 ALT 40 Alkaline Phosphatase 68 Total Protein 7.8 Albumin 3.9 Globulin 3.9 Albumin/Globulin Ratio 1.0 Lipase 25 Urine Color Urine Clarity Urine pH Ur Specific [place] Urine Protein Urine Glucose (UA) Urine Ketones Urine Occult Blood Urine Nitrite Urine Bilirubin Urine Urobilinogen Ur Leukocyte Esterase Ur Microscopic Review Urine Culture Comments Urine HCG, Qual Serum Ketones SMALL H 12/05/20 11:31 WBC RBC Hgb Hct MCV MCH MCHC RDW Plt Count MPV Neut # (Auto) Lymph # (Auto) [place] # (Auto) Eos # (Auto) Baso # (Auto) Absolute Nucleated RBC Nucleated RBC % Sodium Potassium Chloride Carbon Dioxide Anion Gap BUN Creatinine Estimated GFR (MDRD) Glucose Lactic Acid Calcium Total Bilirubin AST ALT Alkaline Phosphatase Total Protein Albumin Globulin Albumin/Globulin Ratio Lipase Urine Color YELLOW Urine Clarity CLEAR Urine pH 7.5 Ur Specific [place] 1.015 Urine Protein NEGATIVE Urine Glucose (UA) NEGATIVE Urine Ketones 15 H Urine Occult Blood NEGATIVE Urine Nitrite NEGATIVE Urine Bilirubin NEGATIVE Urine Urobilinogen 0.2 (NORMAL) Ur Leukocyte Esterase NEGATIVE Ur Microscopic Review NOT INDICATED Urine Culture Comments NOT INDICATED Urine HCG, Qual NEGATIVE Serum Ketones - Rads (name of study) CT abd/pelvis Radiology: Final report received, See rad report (Fluid collections at trochar sites, possible abscess) PD MEDICAL DECISION MAKING - ED course ED course: The CT abdomen pelvis did show fluid collections around the trocar sites that could be consistent with abscess. Her CBC is still pending. She feels much better after a dose of Compazine. She declined any narcotic pain medications. Will consult with surgery once the CBC has been reported out. 1500: Discussed with surgery and the patient will be admitted after their evaluation for drainage. 1552: On-call surgery, Dr Mohan, did come to Department and evaluate the patient. She did not feel that the CT was anything out of the ordinary for the recent surgery. Patient also is agreeable to discharge home with attempts to control her nausea and vomiting and taking laxative to clear the c onstipation.She is encouraged to return to the emergency department if she has increasing pain, she continues vomiting, develops fever or other problems arise. Departure - Departure Disposition: Home, Self Care Clinical Impression: Abdominal pain, Constipation Condition: Stable Instructions: Abdominal Pain, ED Constipation Follow-Up: Gian Harper MD [Provider Admit Priv/Credential] - Sebastian Narayan MD [Primary Care Provider] - Prescriptions: Promethazine Supp [Phenergan Supp] 25 mg MD Q8H #6 supp Comments: Gastrografin and Dulcolax suppository as soon as you get home. Prescription for Phenergan suppositories for nausea [facility]. Plenty of fluids. Follow-up with Dr. Harper for recheck. To the emergency department if you have increasing pain, develop a fever, or vomiting and cannot keep anything down or other problems arise.
[2020-12-05] MEDS ORDERED: PROCHLORPERAZINE 10 MG/2 ML VIAL IVP STA (10:53)
[2020-12-05] MEDS ORDERED: LACTATED RINGERS 1,000 ML IV STA (10:53)
[2020-12-05 11:09] LABS: KETONES, SERUM (ACETEST) SMALL (NEGATIVE)
[2020-12-05 11:18] LABS: ALBUMIN 3.9 g/dL (3.2-5.5); ALKALINE PHOSPHATASE 68 IU/L (42-121); ALT ALANINE AMINOTRANSFERASE 40 IU/L (10-60); AST ASPARTATE AMINOTRANSFERASE 28 IU/L (10-42); BILIRUBIN,TOTAL 0.9 mg/dL (0.2-1.0); BUN - BLOOD UREA NITROGEN 13 mg/dL (6-20); CALCIUM 9.3 mg/dL (8.5-10.3); CARBON DIOXIDE - CO2 27 mmol/L (21-32); CHLORIDE 103 mmol/L (101-111); CREATININE 0.8 mg/dL (0.4-1.0); GFR - MDRD 77 (>89); GLUCOSE 174 mg/dL (70-100); LIPASE 25 U/L (22-51); POTASSIUM 3.8 mmol/L (3.5-5.0); SODIUM 142 mmol/L (135-145); TOTAL PROTEIN 7.8 g/dL (6.7-8.2)
[2020-12-05] MEDS ORDERED: IOPAMIDOL-300 100 ML VIAL ONE (11:31)
[2020-12-05 11:40] LABS: BILIRUBIN,URINE NEGATIVE (NEGATIVE); GLUCOSE, URINE (UA) NEGATIVE (NEGATIVE); KETONES,URINE (UA) 15 mg/dL (NEGATIVE); LEUKOCYTE ESTERASE, URINE NEGATIVE (NEGATIVE); NITRITE,URINE NEGATIVE (NEGATIVE); OCCULT BLOOD,URINE NEGATIVE (NEGATIVE); PH,URINE 7.5 PH (5.0-7.5); PROTEIN,URINE NEGATIVE (NEGATIVE); UROBILINOGEN,URINE 0.2 (NORMAL) E.U./dL (NORMAL)
[2020-12-05 11:42] LABS: CLARITY,URINE CLEAR (CLEAR); HCG UR QUAL NEGATIVE
--- NOTE | 2020-12-05 12:58 | CT Report ---
PROCEDURE: Abdomen/Pelvis W INDICATIONS: Abd pain post-surg CONTRAST: IV CONTRAST: Isovue 300 ml: 10 PO CONTRAST: *NO PO CONTRAST TECHNIQUE: After the administration of intravenous contrast, 5 mm thick sections acquired from the diaphragms to the symphysis. 5 mm thick coronal and sagittal reformats were acquired. For radiation dose reducti on, the following was used: automated exposure control, adjustment of mA and/or kV according to naomy ent size. COMPARISON: CT abdomen and pelvis with contrast, 08/21/2020 and 09/30/2019. FINDINGS: Image quality: Excellent. ABDOMEN: Lung bases: Small pleural effusions are present bilaterally. Bibasilar atelectasis. Heart size is no rmal. Solid organs: Liver and spleen are normal in size and enhancement. Gallbladder is surgically absent . Biliary system is non dilated. Pancreas enhances normally. No adrenal nodules. Kidneys demonstr ate normal size and enhancement, without hydronephrosis. Peritoneum and bowel: Bowel loops demonstrate normal wall thickness and caliber. There are numerous colonic diverticula. No CT findings to suggest acute diverticulitis. A small amount of free fluid is present in the pelvis on the right side. No free air. Nodes and vessels: No retroperitoneal or mesenteric adenopathy by size criteria. Aorta and inferior vena cava are normal in size. Miscellaneous: There are postsurgical changes related to ventral hernia repair. A 2.4 x 2.3 x 3.1 cm irregular compared to fluid and gas collection with stranding extending stranding is noted at midlin e adjacent to the surgical scar couple surgical clips. Inferiorly, there is a a 1.9 x 1.7 x 2.9 cm co mplex fluid collection right lateral of the umbilicus and surgical scar. PELVIS: Genitourinary: Bladder wall thickness is normal. Miscellaneous: No inguinal hernias or adenopathy. Bones: No suspicious bony lesions. No vertebral body compression fractures. IMPRESSION: 1. Postsurgical changes related to ventral hernia repair. There are 2 small complex fluid collections along the surgical scar in the ventral abdominal wall. The more superior collection contains both fl uid and gas. There is soft tissue stranding around both fluid collections. Differential diagnoses are phlegmons, abscesses versus seromas. 2. Diverticulosis without acute diverticulitis. 3. There is a small amount of free fluid in the pelvis on the right. 4. Small pleural effusions laterally with bibasilar atelectasis. Reviewed by: Tarik Rodriguez MD on 12/05/2020 12:57 PM PDT Approved by: Tarik Rodriguez MD on 12/05/2020 12:57 PM PDT Station ID: [id number]
[2020-12-05 14:21] LABS: BASOPHILS # (AUTO) 0.1 10^3/uL (0.0-0.1); BASOPHILS % (AUTO) 0.4 %; EOSINOPHILS # (AUTO) 0.5 10^3/uL (0.0-0.7); EOSINOPHILS % (AUTO) 4.2 %; HCT - HEMATOCRIT 40.7 % (37.0-47.0); HGB - HEMOGLOBIN 13.4 g/dL (12.0-16.0); LYMPHOCYTES # (AUTO) 1.1 10^3/uL (1.5-3.5); LYMPHOCYTES % (AUTO) 9.6 %; MEAN CORPUSCULAR HEMOGLOBIN 30.5 pg (27.0-31.0); MEAN CORPUSCULAR HGB CONC 32.9 g/dL (32.0-36.0); MEAN CORPUSCULAR VOLUME 92.5 fL (81.0-99.0); MONOCYTES # (AUTO) 0.5 10^3/uL (0.0-1.0); MONOCYTES % (AUTO) 4.4 %; NEUTROPHILS # (AUTO) 9.1 10^3/uL (1.5-6.6); NEUTROPHILS % (AUTO) 80.8 %; PLT - PLATELET COUNT 314 10^3/uL (130-450); RED CELL DISTRIBUTION WIDTH 13.3 % (12.0-15.0); WHITE BLOOD COUNT 11.3 x10^3/uL (4.8-10.8)
[2020-12-05] MEDS ORDERED: DIATRIZOATE MEGLU/DIATRIZO SOD 30 ML BOTTLE PO ONE (15:43)
[2020-12-05] MEDS ORDERED: BISACODYL 10 MG SUPP PR STA (15:44)
[2020-12-05 16:17] VITALS: BP 148/65
[2020-12-05] MEDS ORDERED: IOPAMIDOL-300 100 ML VIAL IVP ONE (21:42)
== END 2020-12-05 16:40 | disposition home or self-care (01) ==
LOC: ED 10:03
DX: K91.89 Other postprocedural complications and disorders of digestive system (principal); E11.9 Type 2 diabetes mellitus without complications; Z79.4 Long term (current) use of insulin
CPT/HCPCS: 36415; 74177; 80053; 81003; 81025; 82009; 83605; 83690; 85025; 96374; 99284; A9270; J7120; Q9963; Q9967; 81001; 87086

== ENCOUNTER 2021-03-21 08:00 | Outpatient (CLI) | payer OTHER ==
--- NOTE | 2021-03-21 13:40 | XRAY Report ---
PROCEDURE: Hips 2V BILAT INDICATIONS: UNSPEC. INJURY OF MUSCLE, FASCIA, AND TENDON OF LEFT HIP TECHNIQUE: One view of the pelvis and one view of each hip. COMPARISON: None FINDINGS: Bones: No fractures or dislocations. No suspicious bony lesions. The visualized pelvic ring appear s intact. Periarticular osteophyte formation at the bilateral hip joints. Soft tissues: No suspicious soft tissue calcifications or masses. IMPRESSION: Bilateral hip osteoarthritis. No acute fracture. No osseous lesion. If symptoms and/or clinical suspi cion for pathology continue, further assessment with repeat plain films, or advanced imaging (e.g., C T, MRI, or bone scan) is recommended for further assessment. Reviewed by: Roberto Flores MD on 03/21/2021 1:39 PM PST Approved by: Roberto Flores MD on 03/21/2021 1:39 PM PST Station ID: [id number]
== END 2021-03-21 23:59 | disposition home or self-care (01) ==
LOC: DI.S 08:00
PROVIDERS: ATTEND Emergency Medicine
DX: S76.002A Unspecified injury of muscle, fascia and tendon of left hip, initial encounter (principal); M16.0 Bilateral primary osteoarthritis of hip

== ENCOUNTER 2021-03-25 07:43 | Emergency (ER) | payer OTHER ==
[2021-03-25 08:05] VITALS: BP 128/87
--- NOTE | 2021-03-25 08:40 | ED Physician Documentation ---
PD HPI LOWER EXT INJURY - Stated complaint Stated Complaint: LT HIP/KNEE/FOOT PX - Chief complaint Chief Complaint: Ext Problem - History obtained from History obtained from: Patient - History of Present Illness PD HPI LOW EXT INJURY LOCATION: Left, Hip Type of injury: Fall, Twist Where injury occurred: Home Timing - onset: How many days ago (4) Timing - duration: Days (4) Timing - details: Abrupt onset, Still present Improved by: Rest, Ice, Immobilization Worsened by: Moving, Palpating Associated symptoms: Swelling. No: Weakness Similar symptoms before: Has not had sx before Recently seen: Emergency Dept - Additional information Additional information: 45-year-old female slipped and fell on the ice 4 days ago. She strained her left hip. She had x-rays done here in the emergency department without finding a CT scan is again without findings she is unable to bear weight on this hip. She is return today for MRI scanning with the thought she may have a labral tear. The patient states that she has had significant pain and has still not been able to bear weight. 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: Hysterectomy, Oophrectomy HEENT: Rhinoplasty - Present Medications Home Medications: Ambulatory Orders Medication Instructions Recorded Confirmed Atorvastatin [Lipitor] 20 mg ORAL QPM 10/10/18 03/22/21 metFORMIN [Glucophage] 500 mg PO BID 10/10/18 03/22/21 Insulin Aspart [NovoLOG] 18 - 20 unit SUBQ TIDWM MDD 06/01/19 03/22/21 sliding scale: ~15 units lisinopriL [Lisinopril] 2.5 mg PO QPM 06/01/19 03/22/21 Insulin Glargine [Lantus Solostar] 18 - 20 unit SUBQ QPM 11/27/20 03/22/21 Omeprazole 20 mg PO DAILY 11/27/20 03/22/21 Ondansetron Odt [Zofran] 4 mg TL Q6H PRN #10 tablet 03/22/21 Oxycodone HCl/Acetaminophen 1 - 2 each PO Q6H PRN #20 tablet 03/22/21 [Percocet 5-325 mg Tablet] - Allergies Allergies/Adverse Reactions: Allergies Allergy/AdvReac Type Severity Reaction Status Date / Time hydrocodone [From Vicodin] Allergy Intermediate Nausea Verified 03/25/21 08:05 ciprofloxacin [From Cipro] Allergy Anaphylaxis Verified 03/25/21 08:05 shellfish derived Allergy Anaphylaxis Verified 03/25/21 08:05 - Social History Does the pt smoke?: No Smoking Status: Never smoker Does the pt drink ETOH?: Yes Does the pt have substance abuse?: No - Immunizations Immunizations: TDAP >10years/unknown PD ED PE NORMAL - Vitals Vital signs reviewed: Yes (Hypertensive) - General General: Alert and oriented X 3, Well developed/nourished, Other (Tears to the eyes from pain.) - HEENT HEENT: Atraumatic, PERRL, EOMI - Respiratory Respiratory: No respiratory distress - Derm Derm: Normal color, Warm and dry, No rash - Extremities Extremities: No deformity, Other (tenderness over the left anterior thigh ) - Neuro Neuro: Alert and oriented X 3, platinum and palladium kettle tender 2-12 intact, No motor deficit, No sensory deficit, Normal speech Eye Opening: Spontaneous Motor: Obeys Commands Verbal: Oriented GCS Score: 15 - Psych Psych: Normal mood, Normal affect Results - Vitals Vitals: Vital Signs - 24 hr 03/25/21 08:02 Temperature 36.5 C Heart Rate 78 Respiratory 20 Rate Blood Pressure 128/87 H O2 Saturation 100 Oxygen O2 Source Room air - Rads (name of study) left hip Radiology: Prelim report reviewed (Impression: 1. Edema within the quadriceps femoris, compatible with injury. Intact appearance of the adjacent iliopsoas tendon; however, a small tear cannot be excluded.), EMP read indepedently, See rad report PD MEDICAL DECISION MAKING - ED course Complexity details: reviewed results, re-evaluated patient, considered differential, d/w patient ED course: 45-year-old female returns to the emerge department today for MRI scanning of her hip she does not have any evidence of a an occult fracture she does not have a labral tear she does have strain of the muscle and this is likely what happened. I have indicated the patient may take 14 days for this to resolve and she should do some gentle range of motion we have provided additional medication for pain. Discharge instructions and prescription were done handwritten. Departure - Departure Disposition: 01 Home, Self Care Clinical Impression: Acute myofascial strain Condition: Stable Discharge Date/Time: 03/25/21 15:47
--- NOTE | 2021-03-25 10:27 | MRI Report ---
PROCEDURE: Hip LT W/O INDICATIONS: twisting injury L hip neg CT ? labral tear TECHNIQUE: Noncontrast coronal T1 spin echo and STIR through the bony pelvis. Coronal and axial T2 fast spin ec ho with fat saturation, sagittal T1 spin echo, and oblique axial T2 fast spin echo with fat saturatio n through the hip. COMPARISON: None. Findings: MUSCULATURE: T2 hyperintense signal within the quadratus femoris (601-8). The adjacent iliopsoas tend on appears intact; however, a small tear cannot be excluded. LABRUM: Maintained without evidence of tear or paralabral cyst. HAMSTRING ATTACHMENT: No significant abnormality. BONES/JOINTS: No fractures or dislocations are identified. No evidence of irregularity or fragmentat ion of the femoral heads to suggest avascular necrosis. The bone marrow signal intensity is normal for the patient's age. No substantial joint effusion. PELVIC STRUCTURES: The lower pelvic intraperitoneal structures are unremarkable. Impression: 1.Edema within the quadriceps femoris, compatible with injury. 2.Intact appearance of the adjacent iliopsoas tendon; however, a small tear cannot be excluded Reviewed by: Hayden Tinajero MD on 03/25/2021 10:26 AM PST Approved by: Hayden Tinajero MD on 03/25/2021 10:26 AM PST Station ID: [id number]
[2021-03-25] MEDS ORDERED: KETOROLAC 60 MG/2 ML VIAL IM ONE (11:38)
--- NOTE | 2021-03-29 18:29 | ED Physician Documentation ---
ED Addendum - Addendum Addendum: 03/29/21 18:27 Patient called the emergency department stating that the E prescribed medication from Dr. Francois did not make it to the pharmacy, her visit was during [facility] downtime. She is requesting Zofran and tramadol. This was sent to [facility] in [place] for her. Departure - Departure Disposition: 01 Home, Self Care Clinical Impression: Acute myofascial strain Condition: Stable Prescriptions: traMADol [Ultram] 50 - 100 mg PO Q6H PRN #14 tab PRN Reason: Pain Ondansetron Odt [Zofran] 4 mg TL Q6H PRN #10 tablet PRN Reason: Nausea / Vomiting Discharge Date/Time: 03/25/21 15:47
== END 2021-03-25 15:47 | disposition home or self-care (01) ==
LOC: ED 07:43
DX: S76.012A Strain of muscle, fascia and tendon of left hip, initial encounter (principal); W00.0XXA Fall on same level due to ice and snow, initial encounter; Y92.009 Unspecified place in unspecified non-institutional (private) residence as the place of occurrence of the external cause; I10 Essential (primary) hypertension; E11.9 Type 2 diabetes mellitus without complications; Z79.4 Long term (current) use of insulin; Z79.84 Long term (current) use of oral hypoglycemic drugs
CPT/HCPCS: 99282; 99283

== ENCOUNTER 2021-05-16 14:25 | Emergency (ER) | payer OTHER ==
--- NOTE | 2021-05-16 15:21 | ED Physician Documentation ---
History of Present Illness - Stated complaint Stated Complaint: FALL,INCONTINENCE - Chief complaint Chief Complaint: Neuro - History obtained from History obtained from: Patient - History of Present Illness Pain level max: 6 Pain level now: 5 - Additonal information Additional information: Patient is a 45-year-old female who states that she slipped on the ice and snow about 3 months ago. She states over the last 2 weeks has gradually developed increasing numbness to her perineal area. She states she has had urinary and fecal incontinence. She went to physical therapy today for her left hip and was told to come here for evaluation. She has ongoing left hip and low back pain. She states she has had an MRI of the hip but not of the spine. She states that the numbness comes and goes. She states the urinary incontinence also comes and goes. Review of Systems Ten Systems: 10 systems reviewed and negative Constitutional: denies: Fever, Chills Cardiac: denies: Chest pain / pressure, Palpitations Respiratory: denies: Dyspnea, Cough GI: denies: Nausea, Vomiting, Diarrhea Skin: denies: Rash Musculoskeletal: reports: Back pain (Occasional low back pain). denies: Neck pain Neurologic: denies: Focal weakness, Confused, Altered mental status, Headache PD PAST MEDICAL HISTORY - Past Medical History Cardiovascular: Hypertension, High cholesterol Respiratory: None Neuro: None Endocrine/Autoimmune: Type 2 diabetes GI: GERD BACK PANEL PADDER: Endometriosis : None HEENT: Chronic vision loss Psych: Anxiety Musculoskeletal: Osteoarthritis Derm: None - Past Surgical History Past Surgical History: Yes General: Cholecystectomy /BACK PANEL PADDER: Hysterectomy, Oophrectomy HEENT: Rhinoplasty - Present Medications Home Medications: Ambulatory Orders Medication Instructions Recorded Confirmed Atorvastatin [Lipitor] 20 mg ORAL QPM 10/10/18 03/22/21 metFORMIN [Glucophage] 500 mg PO BID 10/10/18 03/22/21 Insulin Aspart [NovoLOG] 18 - 20 unit SUBQ TIDWM MDD 06/01/19 03/22/21 sliding scale: ~15 units lisinopriL [Lisinopril] 2.5 mg PO QPM 06/01/19 03/22/21 Insulin Glargine [Lantus Solostar] 18 - 20 unit SUBQ QPM 11/27/20 03/22/21 Omeprazole 20 mg PO DAILY 11/27/20 03/22/21 Ondansetron Odt [Zofran] 4 mg TL Q6H PRN #10 tablet 03/22/21 Oxycodone HCl/Acetaminophen 1 - 2 each PO Q6H PRN #20 tablet 03/22/21 [Percocet 5-325 mg Tablet] Ondansetron Odt [Zofran] 4 mg TL Q6H PRN #10 tablet 03/29/21 traMADol [Ultram] 50 - 100 mg PO Q6H PRN #14 tab 03/29/21 - Allergies Allergies/Adverse Reactions: Allergies Allergy/AdvReac Type Severity Reaction Status Date / Time hydrocodone [From Vicodin] Allergy Intermediate Nausea Verified 05/16/21 14:39 ciprofloxacin [From Cipro] Allergy Anaphylaxis Verified 05/16/21 14:39 shellfish derived Allergy Anaphylaxis Verified 05/16/21 14:39 - Social History Does the pt smoke?: No Smoking Status: Never smoker Does the pt drink ETOH?: Yes Does the pt have substance abuse?: No - Immunizations Immunizations: TDAP >10years/unknown PD ED PE NORMAL - Vitals Vital signs reviewed: Yes - General General: Alert and oriented X 3, No acute distress, Well developed/nourished - HEENT HEENT: PERRL, Moist mucous membranes - Neck Neck: Supple, no meningeal sign - Cardiac Cardiac: RRR, Strong equal pulses - Respiratory Respiratory: No respiratory distress, Clear bilaterally - Abdomen Abdomen: Soft, Non tender, Non distended - Rectal Rectal: Other (Normal rectal tone. Mild decreased perineal sensation.) - Derm Derm: Warm and dry - Extremities Extremities: No edema, No calf tenderness / cord - Neuro Neuro: Alert and oriented X 3, gypsum roofer 2-12 intact, No motor deficit, Other (Mild decrease sensation on the inner aspect of the bilateral thighs.) - Psych Psych: Normal mood, Normal affect Results - Vitals Vitals: Vital Signs - 24 hr 05/16/21 05/16/21 05/16/21 14:30 18:49 19:00 Temperature 36.1 C L 36.2 C L Heart Rate 85 85 77 Respiratory 17 16 17 Rate Blood Pressure 126/85 H 147/107 H 132/97 H O2 Saturation 100 98 97 Oxygen O2 Source Room air - Rads (name of study) MRI lumbar spine Radiology: Final report received, EMP read contemporaneously, See rad report (No acute abnormality) PD MEDICAL DECISION MAKING - ED course Complexity details: reviewed results, re-evaluated patient, considered differential (No cauda equina, no spinal epidural abscess, no fracture, no aortic dissection or evidence of aneursym rupture), d/w patient ED course: Patient with reported intermittent urinary incontinence and fecal incontinence over the past 2 weeks. Normal rectal tone here. Mild saddle anesthesia. Negative MRI of the lumbar spine. No evidence of cauda equina, epidural abscess. Patient has had an MRI of the left hip as well. Patient ambulating without any difficulty. Does not want anything for pain today. We will have her follow-up with her orthopedist for further care. Patient counseled regarding signs and symptoms for which I believe and urgent re-evaluation would be necessary. Patient with good understanding of and agreement to plan and is comfortable going home at this time This document was made in part using voice recognition software. While efforts are made to proofread this document, sound alike and grammatical errors may occu r. Departure - Departure Disposition: 01 Home, Self Care Clinical Impression: Paresthesia Condition: Good Instructions: ED Paraesthesias Follow-Up: Brown Mike PA-C [Provider Admit Priv/Credential] - Tucker Prince MD [Provider Admit Priv/Credential] - Sebastian Narayan MD [Primary Care Provider] - Within 1 week Comments: The cause of your symptoms is unclear today. Please follow-up with your doctor for further care. Please return if you worsen. Your MRI is normal today. FINDINGS: Image quality: Excellent. Alignment and Curvature: There is normal bony alignment. Bone Marrow: Marrow is of normal overall signal. No acute vertebral body compression fractures. Incidental L1 vertebral body hemangioma Spinal Cord: Conus medullaris terminates at the L1-L2 level. Visualized cord demonstrates normal signal and size. Paraspinous Soft Tissues: No paravertebral masses. At the disc levels, there is no disc bulge or protrusion. No central or foraminal stenosis. IMPRESSION: 1. Unremarkable MRI lumbar spine without evidence of canal stenosis. No disc bulge or protrusion. No mass lesion Discharge Date/Time: 05/16/21 19:30
--- NOTE | 2021-05-16 18:37 | MRI Report ---
PROCEDURE: MRI lumbar spine without contrast INDICATIONS: saddle anesthesia, urinary incontinence TECHNIQUE: Noncontrast sagittal T1 spin echo and T2 fast echo, sagittal STIR, axial T1 and T2 fast spin echo thr ough the lumbar spine. In cases with scoliosis, additional coronal T2 fast spin echo may be performe d. COMPARISON: None. FINDINGS: Image quality: Excellent. Alignment and Curvature: There is normal bony alignment. Bone Marrow: Marrow is of normal overall signal. No acute vertebral body compression fractures. In cidental L1 vertebral body hemangioma Spinal Cord: Conus medullaris terminates at the L1-L2 level. Visualized cord demonstrates normal si gnal and size. Paraspinous Soft Tissues: No paravertebral masses. At the disc levels, there is no disc bulge or protrusion. No central or foraminal stenosis. IMPRESSION: 1. Unremarkable MRI lumbar spine without evidence of canal stenosis. No disc bulge or protrusion. No mass lesion. Reviewed by: Sage Ellis MD on 05/16/2021 5:36 PM [facility] Approved by: Sage Ellis MD on 05/16/2021 5:36 PM [facility] Station ID: [id number]
[2021-05-16 19:10] VITALS: BP 132/97
== END 2021-05-16 19:30 | disposition home or self-care (01) ==
LOC: ED 14:25
DX: R20.2 Paresthesia of skin (principal)
CPT/HCPCS: 99284

== ENCOUNTER 2021-05-22 07:34 | Outpatient (CLI) | payer OTHER ==
[2021-05-22 15:20] LABS: BASOPHILS # (AUTO) 0.1 10^3/uL (0.0-0.1); BASOPHILS % (AUTO) 0.9 %; EOSINOPHILS # (AUTO) 0.2 10^3/uL (0.0-0.7); EOSINOPHILS % (AUTO) 3.8 %; HCT - HEMATOCRIT 40.1 % (37.0-47.0); HGB - HEMOGLOBIN 13.3 g/dL (12.0-16.0); LYMPHOCYTES # (AUTO) 1.7 10^3/uL (1.5-3.5); LYMPHOCYTES % (AUTO) 26.8 %; MEAN CORPUSCULAR HEMOGLOBIN 30.6 pg (27.0-31.0); MEAN CORPUSCULAR HGB CONC 33.2 g/dL (32.0-36.0); MEAN CORPUSCULAR VOLUME 92.2 fL (81.0-99.0); MEAN PLATELET VOLUME 10.1 fL (7.9-10.8); MONOCYTES # (AUTO) 0.4 10^3/uL (0.0-1.0); MONOCYTES % (AUTO) 5.5 %; NEUTROPHILS % (AUTO) 62.7 %; PLT - PLATELET COUNT 252 10^3/uL (130-450); RED BLOOD COUNT 4.35 10^6/uL (4.20-5.40); RED CELL DISTRIBUTION WIDTH 13.7 % (12.0-15.0); WHITE BLOOD COUNT 6.3 x10^3/uL (4.8-10.8)
[2021-05-22 15:33] LABS: ALBUMIN 3.8 g/dL (3.2-5.5); ALBUMIN/GLOBULIN RATIO 1.4 (1.0-2.2); BILIRUBIN,TOTAL 0.7 mg/dL (0.2-1.0); CALCIUM 8.6 mg/dL (8.5-10.3); CREATININE 0.8 mg/dL (0.4-1.0); POTASSIUM 3.8 mmol/L (3.5-5.0); TOTAL PROTEIN 6.6 g/dL (6.7-8.2)
[2021-05-22 21:01] LABS: ESTIMATED AVERAGE GLUCOSE 174 mg/dL (70-100); HEMOGLOBIN A1c% 7.7 % (4.27-6.07)
== END 2021-05-22 07:35 | disposition home or self-care (01) ==
LOC: LAB.S 07:34
PROVIDERS: ATTEND Internal Medicine
DX: E11.9 Type 2 diabetes mellitus without complications (principal); Z79.4 Long term (current) use of insulin
CPT/HCPCS: 36415; 80053; 83036; 85025

== ENCOUNTER 2021-12-16 13:03 | Outpatient (CLI) | payer OTHER ==
--- NOTE | 2021-12-17 11:31 | Mammography Report ---
BILATERAL DIGITAL SCREENING MAMMOGRAM 3D/2D: 12/16/2021 CLINICAL: Routine screening. Comparison is made to exams dated: 03/31/2019 mammogram - [facility] and 08/07/2014 m ammogram - [facility] There are scattered areas of fibroglandular density in both breasts (category b / 25%-50% glandular t issue). No significant masses, calcifications, or other findings are seen in either breast. There has been no significant interval change. IMPRESSION: NEGATIVE There is no mammographic evidence of malignancy. A 1 year screening mammogram is recommended. Based on the Tyrer Cuzick model (a risk assessment model) the patients lifetime risk is 2.9% and her 10 year risk is 0.6%. According to the ACR, ACS, and NCCN guidelines, an annual breast MRI exam tru g with mammogram is recommended if the patients lifetime risk is 20% or greater. This exam was interpreted at Station ID: [id number]. NOTE: For mammograms, a report in lay terms will be sent to the patient. Approximately 15% of breast malignancies will not be visualized mammographically. In the management of a palpable breast mass, a negative mammogram must not discourage biopsy of a clinically suspicious lesion. Electronically Signed By: Ferdinand Mckeon M.D., jr/moe:12/16/2021 15:23:44 ACR BI-RADS Category 1: Negative 3341F PARENCHYMAL PATTERN: (A) - The breast(s) demonstrate(s) scattered fibroglandular densities. BI-RADS CATEGORY: (1) - 1 RECOMMENDATION: (ANNUAL) - Recommend routine annual screening mammography. [id number] 1 year screening LATERALITY: (B)
== END 2021-12-16 13:04 | disposition home or self-care (01) ==
LOC: DI 13:03
PROVIDERS: ATTEND Nurse Practitioner Family
DX: Z12.31 Encounter for screening mammogram for malignant neoplasm of breast (principal)

== ENCOUNTER 2021-12-16 13:04 | Outpatient (CLI) | payer OTHER ==
--- NOTE | 2021-12-16 16:23 | DEXA Report ---
PROCEDURE: Dexa Spine and/or Hip INDICATIONS: POSTMENOPAUSAL TECHNIQUE: Dual energy x-ray absorptiometry (DXA) was performed on a [employer] System. Regions measur ed are the AP Spine, femoral neck, and if needed forearm. COMPARISON: None. FINDINGS: Lumbar Spine: Bone Mineral Density 1.254 g/cm/cm,T score 0.6, normal Left Hip: Bone Mineral Density 1.124 g/cm/cm,T score 0.9, normal Left Femoral Neck: Bone Mineral Density 0.972 g/cm/cm, T score -0.5, normal (T score greater or equal to -1.0: NORMAL) (T score from -1.1 to -2.4: OSTEOPENIA) (T score less than or equal to -2.5 to: OSTEOPOROSIS) Impression: Normal bone mineral density without evidence of osteopenia Patients with diagnosis of osteoporosis or osteopenia should have regular bone mineral density assess ment. For those eligible for Medicare, routine testing is allowed once every 2 years. Testing frequ ency can be increased for patients who have rapidly progressing disease or for those who are receivin g medical therapy to restore bone mass. Reviewed by: Sage Ellis MD on 12/16/2021 3:22 PM [facility] Approved by: Sage Ellis MD on 12/16/2021 3:22 PM [facility] Station ID: [id number]
== END 2021-12-16 13:05 | disposition home or self-care (01) ==
LOC: DI 13:04
PROVIDERS: ATTEND Nurse Practitioner Family
DX: Z78.0 Asymptomatic menopausal state (principal)

== ENCOUNTER 2022-06-18 10:00 | Emergency (ER) | payer OTHER ==
[2022-06-18] MEDS ORDERED: SODIUM CHLORIDE 0.9% 1,000 ML IV STA (10:10)
[2022-06-18] MEDS ORDERED: KETOROLAC 15 MG/ML VIAL IVP STA (10:25)
--- NOTE | 2022-06-18 10:26 | ED Physician Documentation ---
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 No dysuria per se. 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: Endometriosis : None HEENT: Chronic vision loss Psych: Anxiety Musculoskeletal: Osteoarthritis Derm: None - Past Surgical History Past Surgical History: Yes General: Cholecystectomy /COUNTY ADVISER: Hysterectomy, Oophrectomy HEENT: Rhinoplasty - Present Medications Home Medications: Ambulatory Orders Medication Instructions Recorded Confirmed Atorvastatin [Lipitor] 20 mg ORAL QPM 10/10/18 03/22/21 metFORMIN [Glucophage] 500 mg PO BID 10/10/18 03/22/21 Insulin Aspart [NovoLOG] 18 - 20 unit SUBQ TIDWM MDD 06/01/19 03/22/21 sliding scale: ~15 units lisinopriL [Lisinopril] 2.5 mg PO QPM 06/01/19 03/22/21 Insulin Glargine [Lantus Solostar] 18 - 20 unit SUBQ QPM 11/27/20 03/22/21 Omeprazole 20 mg PO DAILY 11/27/20 03/22/21 Ondansetron Odt [Zofran] 4 mg TL Q6H PRN #10 tablet 03/22/21 Oxycodone HCl/Acetaminophen 1 - 2 each PO Q6H PRN #20 tablet 03/22/21 [Percocet 5-325 mg Tablet] Ondansetron Odt [Zofran] 4 mg TL Q6H PRN #10 tablet 03/29/21 traMADol [Ultram] 50 - 100 mg PO Q6H PRN #14 tab 03/29/21 - Allergies Allergies/Adverse Reactions: Allergies Allergy/AdvReac Type Severity Reaction Status Date / Time hydrocodone [From Vicodin] Allergy Intermediate Nausea Verified 06/18/22 10:08 ciprofloxacin [From Cipro] Allergy Anaphylaxis Verified 06/18/22 10:08 shellfish derived Allergy Anaphylaxis Verified 06/18/22 10:08 - Social History Does the pt smoke?: No Smoking Status: Never smoker Does the pt drink ETOH?: Yes Does the pt have substance abuse?: No - Immunizations Immunizations are current?: Yes Immunizations: TDAP >10years/unknown - POLST Patient has POLST: No PD ED PE NORMAL - Vitals Vital signs reviewed: Yes - General General: Alert and oriented X 3, No acute distress - Neck Neck: Supple, no meningeal sign, No bony TTP - Cardiac Cardiac: RRR, No murmur - Respiratory Respiratory: No respiratory distress, Clear bilaterally - Abdomen Abdomen: Non tender, Other (Right greater than left flank tenderness) - Derm Derm: No rash - Extremities Extremities: No deformity, No edema, No calf tenderness / cord - Neuro Neuro: Alert and oriented X 3, Normal speech Results - Vitals Vitals: Vital Signs - 24 hr 06/18/22 06/18/22 06/18/22 10:04 11:30 13:00 Temperature 36.1 C L Heart Rate 81 61 69 Respiratory 18 16 16 Rate Blood Pressure 156/99 H 141/96 H 139/89 H O2 Saturation 100 99 100 Oxygen O2 Source Room air - Labs Labs: Laboratory Tests 06/18/22 06/18/22 06/18/22 10:12 10:16 10:30 WBC 7.2 RBC 5.00 Hgb 14.9 Hct 44.6 MCV 89.2 MCH 29.8 MCHC 33.4 RDW 12.8 Plt Count 242 MPV 9.8 Neut # (Auto) 4.4 Lymph # (Auto) 2.0 Wilcox # (Auto) 0.4 Eos # (Auto) 0.3 Baso # (Auto) 0.1 Absolute Nucleated RBC 0.00 Nucleated RBC % 0.0 VBG pH VBG pCO2 VBG pO2 VBG HCO3 VBG Total CO2 VBG O2 Saturation VBG Base Excess Sodium Potassium Chloride Carbon Dioxide Anion Gap BUN Creatinine Estimated GFR (MDRD) Glucose POC Whole Bld Glucose 313 H Calcium Magnesium Urine Color YELLOW Urine Clarity CLEAR Urine pH 6.0 Ur Specific [place] 1.020 Urine Protein NEGATIVE Urine Glucose (UA) >=1000 H Urine Ketones 15 H Urine Occult Blood NEGATIVE Urine Nitrite NEGATIVE Urine Bilirubin NEGATIVE Urine Urobilinogen 0.2 (NORMAL) Ur Leukocyte Esterase NEGATIVE Ur Microscopic Review NOT INDICATED Urine Culture Comments NOT INDICATED Urine HCG, Qual Cancelled Serum Ketones 06/18/22 06/18/22 10:30 10:30 WBC RBC Hgb Hct MCV MCH MCHC RDW Plt Count MPV Neut # (Auto) Lymph # (Auto) Wilcox # (Auto) Eos # (Auto) Baso # (Auto) Absolute Nucleated RBC Nucleated RBC % VBG pH 7.403 VBG pCO2 38.5 L VBG pO2 39.4 VBG HCO3 23.5 VBG Total CO2 24.7 VBG O2 Saturation 77.5 VBG Base Excess -1.0 Sodium 138 Potassium 3.8 Chloride 106 Carbon Dioxide 24 Anion Gap 8.0 BUN 13 Creatinine 0.7 Estimated GFR (MDRD) 89 Glucose 369 H POC Whole Bld Glucose Calcium 8.9 Magnesium 1.8 Urine Color Urine Clarity Urine pH Ur Specific [place] Urine Protein Urine Glucose (UA) Urine Ketones Urine Occult Blood Urine Nitrite Urine Bilirubin Urine Urobilinogen Ur Leukocyte Esterase Ur Microscopic Review Urine Culture Comments Urine HCG, Qual Serum Ketones NEGATIVE PD Medical Decision Making - ED course ED course: 46-year-old woman with type 1.5 diabetes presents with flank pain and blood sugars that are higher than normal for her. Her vital signs are unremarkable. She has some flank tenderness on exam but nothing else of note. CBC reviewed and normal. Venous blood gas normal. BMP normal save a blood sugar of 369. U rinalysis with small ketones and glucosuria, no signs of infection, serum ketones negative. It was initially felt most likely she had pyelonephritis, but that does not corroborate with her urine results. Subsequently had a CT of the abdomen and pelvis showing hepatic steatosis and status postcholecystectomy but no other acute findings. She was feeling better after Toradol. Discussed with the patient and her that the cause of her symptoms is not clear, and that she should return in 24 to 48 hours if not improving for recheck, anytime if worse. Departure - Departure Disposition: 01 Home, Self Care Clinical Impression: Hyperglycemia Uncontrolled diabetes mellitus Qualifiers: Diabetes mellitus type: type 1 Glycemic state: with hyperglycemia Qualified Code(s): E10.65 - Type 1 diabetes mellitus with hyperglycemia Condition: Good Record reviewed to determine appropriate education?: Yes Instructions: ED Acute Pain [facility] Comments: As discussed, no clear cause of your symptoms were found. Your urinalysis and other lab work were normal with the exception of the high blood sugar. A CT showed fatty liver, but no clear cause of your symptoms. As such I would like you to return immediately if you develop new or worsening symptoms or if you are not better over the next 24 to 48 hours.
[2022-06-18 10:30] LABS: BILIRUBIN,URINE NEGATIVE (NEGATIVE); GLUCOSE, URINE (UA) >=1000 mg/dL (NEGATIVE); KETONES,URINE (UA) 15 mg/dL (NEGATIVE); LEUKOCYTE ESTERASE, URINE NEGATIVE (NEGATIVE); NITRITE,URINE NEGATIVE (NEGATIVE); OCCULT BLOOD,URINE NEGATIVE (NEGATIVE); PROTEIN,URINE NEGATIVE (NEGATIVE); UROBILINOGEN,URINE 0.2 (NORMAL) E.U./dL (NORMAL)
[2022-06-18 10:32] LABS: CLARITY,URINE CLEAR (CLEAR)
[2022-06-18 10:37] LABS: BASOPHILS # (AUTO) 0.1 10^3/uL (0.0-0.1); BASOPHILS % (AUTO) 0.8 %; EOSINOPHILS # (AUTO) 0.3 10^3/uL (0.0-0.7); EOSINOPHILS % (AUTO) 3.9 %; HCT - HEMATOCRIT 44.6 % (37.0-47.0); HGB - HEMOGLOBIN 14.9 g/dL (12.0-16.0); LYMPHOCYTES % (AUTO) 27.9 %; MEAN CORPUSCULAR HEMOGLOBIN 29.8 pg (27.0-31.0); MEAN CORPUSCULAR HGB CONC 33.4 g/dL (32.0-36.0); MEAN CORPUSCULAR VOLUME 89.2 fL (81.0-99.0); MEAN PLATELET VOLUME 9.8 fL (7.9-10.8); MONOCYTES # (AUTO) 0.4 10^3/uL (0.0-1.0); MONOCYTES % (AUTO) 5.3 %; NEUTROPHILS # (AUTO) 4.4 10^3/uL (1.5-6.6); NEUTROPHILS % (AUTO) 61.5 %; PLT - PLATELET COUNT 242 10^3/uL (130-450); RED CELL DISTRIBUTION WIDTH 12.8 % (12.0-15.0); WHITE BLOOD COUNT 7.2 x10^3/uL (4.8-10.8)
[2022-06-18 10:40] LABS: VBG HCO3 23.5 mmol/L (23-28); VBG OXYGEN SATURATION 77.5 % (60-80); VBG PCO2 38.5 mmHg (41-51); VBG PH 7.403 (7.31-7.41); VBG PO2 39.4 mmHg (25-47); VBG TOTAL CO2 24.7 mmol/L (24-29)
[2022-06-18 10:49] LABS: BUN - BLOOD UREA NITROGEN 13 mg/dL (6-20); CALCIUM 8.9 mg/dL (8.5-10.3); CARBON DIOXIDE - CO2 24 mmol/L (21-32); CHLORIDE 106 mmol/L (101-111); CREATININE 0.7 mg/dL (0.4-1.0); GFR - MDRD 89 (>89); GLUCOSE 369 mg/dL (70-100); MAGNESIUM 1.8 mg/dL (1.7-2.8); POTASSIUM 3.8 mmol/L (3.5-5.0); SODIUM 138 mmol/L (135-145)
[2022-06-18 11:00] LABS: KETONES, SERUM (ACETEST) NEGATIVE (NEGATIVE)
[2022-06-18] MEDS ORDERED: iohexoL-300 100 ML VIAL ONE (11:02)
--- NOTE | 2022-06-18 13:17 | CT Report ---
PROCEDURE: ABDOMEN/PELVIS W INDICATIONS: flank pain, iv only CONTRAST: 100ml OMnipaque 300 TECHNIQUE: After the administration of IV contrast, 5 mm thick sections acquired from the diaphragms to the symp hysis. 5 mm thick coronal and sagittal reformats were acquired. For radiation dose reduction, the f ollowing was used: automated exposure control, adjustment of mA and/or kV according to patient size. COMPARISON: 12/05/2020. FINDINGS: Image quality: Excellent. ABDOMEN: Lung bases: Mild dependent atelectasis in posterior aspect of bilateral lung bases are seen. Heart size is normal. Solid organs: Liver is normal in size. Moderate hepatic steatosis is seen, no discrete hepatic lesion . Spleen is normal in size and enhancement.. Gallbladder is surgically absent. Biliary system is no n dilated. Pancreas enhances normally. No adrenal nodules. Kidneys demonstrate normal size and enh ancement, without hydronephrosis. Peritoneum and bowel: Bowel loops demonstrate normal wall thickness and caliber. No free fluid or a ir. Sigmoid diverticulosis is seen without significant colonic wall thickening or pericolonic fat st randing. Surgical clips are noted in left lower quadrant abdomen. No abscess collection. Nodes and vessels: No retroperitoneal or mesenteric adenopathy by size criteria. Aorta and inferior vena cava are normal in size. Miscellaneous: No ventral hernias. PELVIS: Genitourinary: Bladder wall thickness is normal. Miscellaneous: No inguinal hernias or adenopathy. Bones: No suspicious bony lesions. No vertebral body compression fractures. IMPRESSION: 1. No acute inflammatory process is seen in abdomen or pelvis. No bowel obstruction. No free fluid of free air. Sigmoid diverticulosis without evidence of acute diverticulitis. 2. No renal stones or hydronephrosis. Normal-appearing urinary bladder. No hydroureter. 3. Hepatic steatosis, no discrete hepatic lesion. 1. Prior cholecystectomy Reviewed by: Jayy Sanchez MD on 06/18/2022 1:16 PM PDT Approved by: Jayy Sanchez MD on 06/18/2022 1:16 PM PDT Station ID: [id number]
[2022-06-18 13:54] VITALS: BP 139/94
[2022-06-18] MEDS ORDERED: iohexoL-300 100 ML VIAL IVP ONE (17:16)
== END 2022-06-18 13:54 | disposition home or self-care (01) ==
LOC: ED 10:00
DX: E13.65 Other specified diabetes mellitus with hyperglycemia (principal); I10 Essential (primary) hypertension; E78.00 Pure hypercholesterolemia, unspecified; Z79.4 Long term (current) use of insulin; Z79.84 Long term (current) use of oral hypoglycemic drugs; Z79.899 Other long term (current) drug therapy
CPT/HCPCS: 36415; 74177; 80048; 81003; 82009; 82803; 83735; 85025; 96361; 96374; 99284; Q9967; 81001; 81025; 87086

== ENCOUNTER 2023-01-14 07:36 | Emergency (ER) | payer OTHER ==
[2023-01-14 07:50] VITALS: O2SAT 100
--- NOTE | 2023-01-14 08:02 | ED Physician Documentation ---
PD HPI FEMALE - Stated complaint Stated Complaint: FEMALE - Chief complaint Chief Complaint: UTI - History obtained from History obtained from: Patient - History of Present Illness Timing - onset: Yesterday Timing - duration: Days (1) Timing - details: Gradual onset, Still present Associated symptoms: Dysuria, Urinary frequency. 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: Endometriosis : None HEENT: Chronic vision loss Psych: Anxiety Musculoskeletal: Osteoarthritis Derm: None - Past Surgical History Past Surgical History: Yes General: Cholecystectomy, Appendectomy /WOOL WASHER: Hysterectomy, Oophrectomy HEENT: Rhinoplasty - Present Medications Home Medications: Ambulatory Orders Medication Instructions Recorded Confirmed metFORMIN [Glucophage] 500 mg PO BID 10/10/18 01/14/23 Insulin Aspart [NovoLOG] 18 - 20 unit SUBQ TIDWM MDD 06/01/19 01/14/23 sliding scale: ~15 units lisinopriL [Lisinopril] 2.5 mg PO QPM 06/01/19 01/14/23 Insulin Glargine [Lantus Solostar] 20 - 25 unit SUBQ QPM 11/27/20 01/14/23 Omeprazole 20 mg PO DAILY 11/27/20 01/14/23 Amox/Clav 875/125 [Augmentin] 1 each PO BID #10 tablet 01/14/23 - Allergies Allergies/Adverse Reactions: Allergies Allergy/AdvReac Type Severity Reaction Status Date / Time hydrocodone [From Vicodin] Allergy Intermediate Nausea Verified 01/14/23 07:42 ciprofloxacin [From Cipro] Allergy Anaphylaxis Verified 01/14/23 07:42 shellfish derived Allergy Anaphylaxis Verified 01/14/23 07:42 - Social History Does the pt smoke?: No Smoking Status: Never smoker Does the pt drink ETOH?: Yes ETOH Use: Wine Does the pt have substance abuse?: Yes Substance Use and Type: Marijuana, CBD oil / Products - Immunizations Immunizations are current?: Yes Immunizations: TDAP >10years/unknown - POLST Patient has POLST: No PD ED PE NORMAL - Vitals Vital signs reviewed: Yes - General General: Alert and oriented X 3, Well developed/nourished - HEENT HEENT: Pharynx benign - Neck Neck: Supple, no meningeal sign, No adenopathy - Cardiac Cardiac: RRR, No murmur - Respiratory Respiratory: Clear bilaterally - Abdomen Abdomen: Normal bowel sounds, Soft, Non distended, No organomegaly, Other (tender suprapubic and RLQ area without guarding, percussion nor rebound tenderness. ) - Female Female : Deferred - Rectal Rectal: Deferred - Back Back: No CVA TTP - Derm Derm: Normal color, No rash Results - Vitals Vitals: Oxygen O2 Source Room air - Labs Labs: Laboratory Tests 01/14/23 08:05 Urine Color YELLOW Urine Clarity CLEAR Urine pH 6.5 Ur Specific [place] 1.010 Urine Protein NEGATIVE Urine Glucose (UA) NEGATIVE Urine Ketones NEGATIVE Urine Occult Blood NEGATIVE Urine Nitrite NEGATIVE Urine Bilirubin NEGATIVE Urine Urobilinogen 0.2 (NORMAL) Ur Leukocyte Esterase NEGATIVE Ur Microscopic Review NOT INDICATED Urine Culture Comments NOT INDICATED PD Medical Decision Making - ED course Complexity details: reviewed results (UA with suggestion of infection. WBC normal. SHared discussion/decision with patient to forego CT since is not going to be appendix, ovarian, uterine and does not sound like kidney stone pattern. C ommon treatment of abx and NSAIDs, pain meds. ), considered differential (lower abd pain suprapubic and right area. Has had prior appendectomy, complete hysterectomy. No prior kidney stones. Not pattern of stone. UA fairly normal, but has bladder symptoms. Scan showing mild retention 189 ml. Diverticula on prior scope. Could be UTI or divertic. ), d/w patient Departure - Departure Disposition: 01 Home, Self Care Clinical Impression: Lower abdominal pain Condition: Stable Record reviewed to determine appropriate education?: Yes Instructions: ED Abdominal Pain Female Non-Specific Abdominal Pain Follow-Up: NANCY HICKEY ARNP [Primary Care Provider] - Prescriptions: Amox/Clav 875/125 [Augmentin] 1 each PO BID #10 tablet Comments: Your bladder was not fully empty but reasonably empty enough. Your symptoms may correspond with a bladder infection. The urinalysis did not look obviously like a bladder infection but it still reasonable to treat it that way. Alternative would be some infection or inflammation in the lower intestine such as early diverticulitis. This would also get treated with an antibiotic and anti-inflammatories initially. At this point I think it is reasonable to treat with Augmentin antibiotic as well as using some anti-inflammatory such as ibuprofen 3 times daily with food and add Tylenol every 4-6 hours if needed. Recheck if not improved well over the next 2 or 3 days and return if worsening. I sent your prescription to your preferred pharmacy. Return if worsening. Discharge Date/Time: 01/14/23 09:27
[2023-01-14 08:12] LABS: BILIRUBIN,URINE NEGATIVE (NEGATIVE); GLUCOSE, URINE (UA) NEGATIVE (NEGATIVE); KETONES,URINE (UA) NEGATIVE (NEGATIVE); LEUKOCYTE ESTERASE, URINE NEGATIVE (NEGATIVE); NITRITE,URINE NEGATIVE (NEGATIVE); OCCULT BLOOD,URINE NEGATIVE (NEGATIVE); PH,URINE 6.5 PH (5.0-7.5); PROTEIN,URINE NEGATIVE (NEGATIVE); UROBILINOGEN,URINE 0.2 (NORMAL) E.U./dL (NORMAL)
[2023-01-14 08:16] LABS: CLARITY,URINE CLEAR (CLEAR)
[2023-01-14] MEDS ORDERED: AMOX/CLAV 875 MG/125 MG TABLET PO STA (08:40)
[2023-01-14] MEDS ORDERED: ACETAMINOPHEN 325 MG TABLET PO STA (08:40)
[2023-01-14] MEDS ORDERED: IBUPROFEN 600 MG TABLET PO STA (08:40)
[2023-01-14 09:27] VITALS: BP 146/90
== END 2023-01-14 09:27 | disposition home or self-care (01) ==
LOC: ED 07:36
DX: R10.30 Lower abdominal pain, unspecified (principal); I10 Essential (primary) hypertension; E78.00 Pure hypercholesterolemia, unspecified; E11.9 Type 2 diabetes mellitus without complications; Z79.84 Long term (current) use of oral hypoglycemic drugs; Z79.4 Long term (current) use of insulin; Z79.899 Other long term (current) drug therapy
CPT/HCPCS: 81003; 99283; A9270; 81001; 87086

== ENCOUNTER 2023-08-24 07:07 | Outpatient (CLI) | payer OTHER ==
[2023-08-24 15:50] LABS: CREATININE,URINE 126.6 mg/dL; MICROALBUMIN,URINE < 0.7 mg/dL
== END 2023-08-24 07:08 | disposition home or self-care (01) ==
LOC: LAB.S 07:07
PROVIDERS: ATTEND Nurse Practitioner
DX: E11.65 Type 2 diabetes mellitus with hyperglycemia (principal); E78.2 Mixed hyperlipidemia; I15.2 Hypertension secondary to endocrine disorders
CPT/HCPCS: 36415; 80053; 80061; 82043; 82570; 83036; 83721; 84443

== ENCOUNTER 2023-10-05 11:49 | Emergency (ER) | payer OTHER ==
[2023-10-05 12:27] VITALS: O2SAT 100
--- NOTE | 2023-10-05 12:52 | XRAY Report ---
PROCEDURE: Chest 1V INDICATIONS: Chest pain TECHNIQUE: One view of the chest was acquired. COMPARISON: None. FINDINGS: Surgical changes and devices: None. Lungs and pleura: No pleural effusions or pneumothorax. Lungs are clear. Mediastinum: Mediastinal contours appear normal. Heart size is normal. Bones and chest wall: No suspicious bony lesions. Overlying soft tissues appear unremarkable. IMPRESSION: No acute cardiopulmonary process. Reviewed by: Harjit Tarango MD on 10/05/2023 11:51 AM GUERDA Approved by: Harjit Tarango MD on 10/05/2023 11:51 AM AKROYA Station ID: [id number]
[2023-10-05 13:06] LABS: BASOPHILS # (AUTO) 0.1 10^3/uL (0.0-0.1); BASOPHILS % (AUTO) 0.7 %; EOSINOPHILS # (AUTO) 0.2 10^3/uL (0.0-0.7); EOSINOPHILS % (AUTO) 2.7 %; HCT - HEMATOCRIT 43.4 % (37.0-47.0); HGB - HEMOGLOBIN 14.3 g/dL (12.0-16.0); LYMPHOCYTES # (AUTO) 2.1 10^3/uL (1.5-3.5); LYMPHOCYTES % (AUTO) 29.1 %; MEAN CORPUSCULAR HEMOGLOBIN 29.7 pg (27.0-31.0); MEAN CORPUSCULAR HGB CONC 32.9 g/dL (32.0-36.0); MONOCYTES # (AUTO) 0.4 10^3/uL (0.0-1.0); MONOCYTES % (AUTO) 5.4 %; NEUTROPHILS # (AUTO) 4.5 10^3/uL (1.5-6.6); NEUTROPHILS % (AUTO) 61.6 %; PLT - PLATELET COUNT 244 10^3/uL (130-450); RED BLOOD COUNT 4.82 10^6/uL (4.20-5.40); RED CELL DISTRIBUTION WIDTH 13.6 % (12.0-15.0); WHITE BLOOD COUNT 7.4 x10^3/uL (4.8-10.8)
--- NOTE | 2023-10-05 13:09 | ED Physician Documentation ---
PD HPI CHEST PAIN - Stated complaint Stated Complaint: CHEST PX, FLUTTERS - Chief complaint Chief Complaint: Cardiac - History obtained from History obtained from: Patient, Family - History of Present Illness Timing - onset: How many hours ago (2) Timing - duration: Hours (2) Timing - details: Gradual onset Pain level max: 7 Pain level now: 6 Quality: Indigestion Location: Substernal Improved by: Nothing. No: Rest Worsened by: No: Exertion, Inspiration, Eating, Movement, Palpation, Position Associated symptoms: Nausea. No: Shortness of air, Diaphoresis, Vomiting, Feeling faint / dizzy, General Weakness, Palpitations, Cough - Additional information Additional information: 47-year-old female presents to the emergency department with substernal chest pain. She states it feels like indigestion. States in the center of the chest. Radiates to the bilateral "armpits". Nothing seems to make it better or worse. No abdominal pain. No vomiting or diarrhea. No cardiac history. She states she has been under a large amount of stress recently. She states that her sister recently secondary to fentanyl. 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 : None HEENT: Chronic vision loss Psych: Anxiety Musculoskeletal: Osteoarthritis Derm: None - Past Surgical History Past Surgical History: Yes General: Cholecystectomy, Appendectomy /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: Hysterectomy, Oophrectomy HEENT: Rhinoplasty - Present Medications Home Medications: Ambulatory Orders Medication Instructions Recorded Confirmed lisinopriL [Lisinopril] 2.5 mg PO QPM 06/01/19 10/05/23 Omeprazole 20 mg PO DAILY 11/27/20 10/05/23 Empagliflozin [Jardiance] 1 tab PO DAILY 10/05/23 10/05/23 Insulin Lispro [Humalog Kwikpen 1 unit SUBQ DAILY 10/05/23 10/05/23 U-200] - Allergies Allergies/Adverse Reactions: Allergies Allergy/AdvReac Type Severity Reaction Status Date / Time hydrocodone [From Vicodin] Allergy Intermediate Nausea Verified 10/05/23 12:17 ciprofloxacin [From Cipro] Allergy Anaphylaxis Verified 10/05/23 12:17 shellfish derived Allergy Anaphylaxis Verified 10/05/23 12:17 - Social History Does the pt smoke?: No Smoking Status: Never smoker Does the pt drink ETOH?: Yes Does the pt have substance abuse?: Yes - Immunizations Immunizations are current?: Yes Immunizations: TDAP >10years/unknown - POLST Patient has POLST: No PD ED PE NORMAL - Vitals Vital signs reviewed: Yes - General General: Alert and oriented X 3, Other (appears anxious and in pain) - HEENT HEENT: PERRL, Moist mucous membranes - Neck Neck: Supple, no meningeal sign - Cardiac Cardiac: RRR, Strong equal pulses - Respiratory Respiratory: No respiratory distress, Clear bilaterally - Abdomen Abdomen: Soft, Non tender, Non distended - Back Back: No spinal TTP - Derm Derm: Warm and dry - Extremities Extremities: No edema, No calf tenderness / cord - Neuro Neuro: Alert and oriented X 3 - Psych Psych: Normal mood, Normal affect Results - Vitals Vitals: Oxygen O2 Source Room air - EKG (time done) 1242 EKG releavant findings:: EKG personally interpreted by author of this note. Relevant findings are: Rate: Rate (enter#) (73) Rhythm: NSR [place]: Normal Intervals: Normal [place] QRS: Normal Ischemia: Normal ST segments - Labs Labs: Laboratory Tests 10/05/23 10/05/23 10/05/23 12:56 12:56 15:09 WBC 7.4 RBC 4.82 Hgb 14.3 Hct 43.4 MCV 90.0 MCH 29.7 MCHC 32.9 RDW 13.6 Plt Count 244 MPV 10.0 Neut # (Auto) 4.5 Lymph # (Auto) 2.1 [place] # (Auto) 0.4 Eos # (Auto) 0.2 Baso # (Auto) 0.1 Absolute Nucleated RBC 0.00 Nucleated RBC % 0.0 Sodium 135 Potassium 3.6 Chloride 100 L Carbon Dioxide 26 Anion Gap 9.0 BUN 10 Creatinine 0.7 Estimated GFR (MDRD) 89 Glucose 256 H Calcium 9.9 Total Bilirubin 0.4 AST 18 ALT 21 Alkaline Phosphatase 63 Troponin I High Sens 2.9 2.7 Total Protein 7.5 Albumin 4.5 Globulin 3.0 Albumin/Globulin Ratio 1.5 Lipase 16 - Rads (name of study) cxr Relevant Findings:: Final report received, See rad report PD Medical Decision Making - ED course Complexity details: reviewed results, re-evaluated patient, considered differential, d/w patient, d/w family ED course: Patient with chest pain. Negative high sensitivity troponin times two. No acute findings on EKG. No acute findings on chest x-ray or laboratory testing. Symptoms resolved with Ativan. She was also given a GI cocktail. No evidence of acute coronary syndrome. Symptoms are not consistent with unstable angina. No evidence of pulmonary embolism or aortic dissection. Recommend that she follow up with her doctor for a cardiac stress test and possible endoscopy. 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 This has not been checked for several years. Recommend that she have this rechecked as this may cause her pain as well.Patient counseled regarding signs and symptoms for which I believe an urgent re-evaluation would be necessary. Patient with good understanding of and agreement to plan and is comfortable going home at this time. This document was made in part using voice recognition software. While efforts are made to proofread this document, sound alike and grammatical errors may occur. Departure - Departure Disposition: 01 Home, Self Care Clinical Impression: Chest pain Qualifiers: Chest pain type: unspecified Qualified Code(s): R07.9 - Chest pain, unspecified Condition: Good Instructions: ED Chest Pain Atypical Unkn Cause Follow-Up: Faby Murillo MD [Primary Care Provider] - Comments: The cause of your symptoms is unclear today. There is no acute finding on your laboratory testing, EKG, chest x-ray. There is no evidence of a heart attack today. Please follow-up with your doctor for further care. They may want to perform a cardiac stress test on you. Please return if you worsen. Forms: PCP List Discharge Date/Time: 10/05/23 16:14
[2023-10-05] MEDS: LORazepam 2 MG/ML VIAL IVP STA (13:12)
[2023-10-05 13:32] LABS: TROPONIN I HIGH SENSITIVITY 2.9 ng/L (2.3-14.8)
[2023-10-05 13:34] LABS: ALBUMIN 4.5 g/dL (3.2-5.5); ALBUMIN/GLOBULIN RATIO 1.5 (1.0-2.2); BILIRUBIN,TOTAL 0.4 mg/dL (0.2-1.0); CALCIUM 9.9 mg/dL (8.5-10.3); CREATININE 0.7 mg/dL (0.6-1.3); POTASSIUM 3.6 mmol/L (3.5-4.5); TOTAL PROTEIN 7.5 g/dL (6.4-8.9)
[2023-10-05] MEDS: FAMOTIDINE 20 MG TABLET PO STA (13:45)
[2023-10-05] MEDS: SUCRALFATE 1 GM/10 ML UDC PO STA (13:45)
[2023-10-05] MEDS: MAG HYDROX/AL HYDROX/SIMETH 30 ML UDC PO STA (13:45)
[2023-10-05 16:17] VITALS: BP 145/86
== END 2023-10-05 16:14 | disposition home or self-care (01) ==
LOC: ED 11:49
DX: R07.9 Chest pain, unspecified (principal); Z87.19 Personal history of other diseases of the digestive system; Z63.4 Disappearance and death of family member
CPT/HCPCS: 36415; 71045; 80053; 83690; 84484; 85025; 93005; 96374; 99284; A9270; J2060